=== PATIENT | female | born 1950 | race Caucasian/White ===

== ENCOUNTER → 2016-05-27 | Outpatient (REF) | payer OTHER ==
[~2016-05-27] MED LIST: /DULO30CA PO; /ROPI1TA PO; /ROPI25TA; ASPI325T; ASPI325T PO; CALCCHW12; CALCCHW12 PO; CLAR250T PO; CLAR5CHW; COLA100C2 PO; FISH300C2; HYDR25TA6; IBUP600T; LYRI200C; LYRI200C PO; MULTIVIT; NIAC10TA; OMEP20TA7 PO; PRIL20CA; PRIM50TA4 PO; PROZ20CA; SIMV20TA2 PO; SIMV40TA2; SING10TA31 PO; TRAZ100T; TRAZ100T PO; VICO5TAB; VIT D 2000 PO; VITA250T; VITA500C OR; VITA50TA12; VITAMIN D50000 UNT; veramyst PO
[2016-05-27 18:14] LABS: MEAN CORPUSCULAR HEMOGLOBIN 31.2 pg (27.0-33.0); MEAN CORPUSCULAR HGB CONC 32.5 g/dl (32.0-36.5); MEAN CORPUSCULAR VOLUME 96.1 fl (80.0-96.0); RED CELL DISTRIBUTION WIDTH 12.4 % (11.5-14.5); WHITE BLOOD COUNT 7.3 K/mm3 (4.0-10.0)
== END ==
LOC: M LABDRAWC 16:24
PROVIDERS: ATTEND Internal Medicine Cardiovascular Disease
DX: R53.83 Other fatigue (principal); R00.1 Bradycardia, unspecified

== ENCOUNTER → 2016-12-02 | Outpatient (CLI) | payer OTHER ==
--- NOTE | 2016-12-02 13:31 | REPMRS ---
Patient History The patient states she had a clinical breast exam in 11/2016. Patient is postmenopausal. Family history of ovarian cancer in sister at age 65, colorectal cancer in brother at age 50 or over, and prostate cancer in brother at age 50 or over. Benign stereotactic core biopsy of the right breast, 2007. Benign stereotactic core biopsy of the right breast, 2003. Reductions of both breasts, 1993. Digital Woman Screen Mammo: December 02, 2016 - Exam #: [id number] Bilateral CC and MLO view(s) were taken. Technologist: Steff Weston Technologist Prior study comparison: September 16, 2015, digital woman screen mammo performed at [facility]. September 13, 2014, digital mammo diagnostic bilateral, performed at [facility]. January 31, 2014, right breast digital mammo diagnostic unilateral, performed at [facility]. FINDINGS: There are scattered fibroglandular densities. There is some stable postoperative contour deformity in the upper outer quadrant on the right unchanged. There has been no change in the appearance of the mammogram from the prior studies. There is a mild amount of scattered fibroglandular density which is fairly symmetric. There is no interval development of dominant mass, architectural distortion, or clustered microcalcification suggestive of malignancy. ASSESSMENT: BI-RADS/ACR category 2 mammogram. Benign finding(s). Recommendation Routine screening mammogram in 1 year (for women over age 40). This mammogram was interpreted with the aid of an FDA-approved computer-aided dectection system. Electronically Signed By: Devin Beaulieu MD 12/02/16 [id number]
--- NOTE | 2016-12-03 09:29 | DEXA ---
AP SPINE L1 - L4 1.070 -1.0 0.5 LT FEMUR TOTAL 0.822 -1.5 -0.3 RT FEMUR TOTAL 0.775 -1.8 -0.7 TOTAL BODY TOTAL OTHER DUAL FEMUR FRAX* ASSESSMENT Risk factors: Not performed. 10 year probability of fracture Major osteoporotic fracture % Hip fracture % COMMENTS: There is low bone density of the spine and hips. The density of the spine has decreased 29.7% since the initial exam on 2002. The spine density has decreased 1.4% since the most recent exam on 08/30/2014. The density of the left hip has decreased 41.7% since the initial exam on 2002. The density of the left hip has decreased 9.0% since the most recent exam on 01/2015. The density of the right hip has decreased 41.8% since the initial exam on 11/01. The density of the right hip has decreased 13.2% since the most recent exam on 08/30/2014. FOLLOW-UP: Recommendation for the next bone density exam: 2 years. LEONIE
== END ==
LOC: M WHC 10:29
PROVIDERS: ATTEND Nurse Practitioner Women's Health
DX: Z12.31 Encounter for screening mammogram for malignant neoplasm of breast (principal); Z78.0 Asymptomatic menopausal state
CPT/HCPCS: 77080; G0202

== ENCOUNTER → 2017-03-11 | Outpatient (REF) | payer OTHER ==
[2017-03-11 12:41] LABS: MEAN CORPUSCULAR HEMOGLOBIN 30.8 pg (27.0-33.0); MEAN CORPUSCULAR HGB CONC 32.6 g/dl (32.0-36.5); MEAN CORPUSCULAR VOLUME 94.3 fl (80.0-96.0); PLATELET COUNT, AUTOMATED 215 10^3/uL (150-450); RED CELL DISTRIBUTION WIDTH 12.6 % (11.5-14.5); WHITE BLOOD COUNT 4.8 10^3/uL (4.0-10.0)
[2017-03-11 12:57] LABS: ALBUMIN 3.8 GM/DL (3.2-5.2); ALBUMIN/GLOBULIN RATIO 1.41 (1.00-1.93); ALKALINE PHOSPHATASE 95 U/L (45-117); ALT/SGPT 18 U/L (12-78); ANION GAP 7 MEQ/L (8-16); AST/SGOT 20 U/L (7-37); BILIRUBIN,TOTAL 0.6 MG/DL (0.2-1.0); BLOOD UREA NITROGEN 11 MG/DL (7-18); CALCIUM LEVEL 8.8 MG/DL (8.8-10.2); CARBON DIOXIDE LEVEL 30 MEQ/L (21-32); CHLORIDE LEVEL 105 MEQ/L (98-107); CHOLESTEROL LEVEL 170 MG/DL (<200); CREATININE FOR GFR 0.62 MG/DL (0.55-1.02); GLOMERULAR FILTRATION RATE > 60.0 (>45); GLUCOSE, FASTING 87 MG/DL (80-110); MAGNESIUM LEVEL 1.8 MG/DL (1.8-2.4); POTASSIUM SERUM 4.3 MEQ/L (3.5-5.1); SODIUM LEVEL 142 MEQ/L (136-145); TOTAL PROTEIN 6.5 GM/DL (6.4-8.2); TRIGLYCERIDES LEVEL 58 MG/DL (<150)
[2017-03-11 13:01] LABS: VITAMIN B12 LEVEL 579 PG/ML
[2017-03-11 13:02] LABS: FOLATE 10.1 NG/ML
== END ==
LOC: M SFHCPLAZ 08:58 → M LABDRAWC 09:10
PROVIDERS: ATTEND Internal Medicine
DX: E78.5 Hyperlipidemia, unspecified (principal); Z86.39 Personal history of other endocrine, nutritional and metabolic disease; I25.10 Atherosclerotic heart disease of native coronary artery without angina pectoris; E55.9 Vitamin D deficiency, unspecified; Z98.84 Bariatric surgery status

== ENCOUNTER → 2017-03-23 | Outpatient (CLI) | payer OTHER | LOC: M RAD 13:01 | DX: Z12.2 Encounter for screening for malignant neoplasm of respiratory organs (principal); F17.200 Nicotine dependence, unspecified, uncomplicated | CPT/HCPCS: G0297 ==

== ENCOUNTER → 2017-06-21 | Outpatient (REF) | payer OTHER ==
[2017-06-21 13:45] LABS: ALBUMIN 4.2 GM/DL (3.2-5.2); ALKALINE PHOSPHATASE 103 U/L (45-117); ALT/SGPT 19 U/L (12-78); ANION GAP 4 MEQ/L (8-16); AST/SGOT 20 U/L (7-37); BILIRUBIN,TOTAL 0.4 MG/DL (0.2-1.0); BLOOD UREA NITROGEN 14 MG/DL (7-18); CALCIUM LEVEL 8.7 MG/DL (8.8-10.2); CARBON DIOXIDE LEVEL 31 MEQ/L (21-32); CHLORIDE LEVEL 107 MEQ/L (98-107); CREATININE FOR GFR 0.59 MG/DL (0.55-1.30); FREE T3 2.7 PG/ML (2.2-4.0); FREE T4 1.03 NG/DL (0.76-1.46); GLOMERULAR FILTRATION RATE > 60.0 (>45); GLUCOSE, FASTING 76 MG/DL (70-100); POTASSIUM SERUM 4.5 MEQ/L (3.5-5.1); SODIUM LEVEL 142 MEQ/L (136-145)
== END ==
LOC: M SFHCPLAZ 11:32
DX: R63.4 Abnormal weight loss (principal)
CPT/HCPCS: 84443

== ENCOUNTER 2017-08-04 08:52 | Day surgery (SDC) | payer MEDICARE, OTHER ==
[2017-08-04] MEDS: NS 1,000 ML IV (09:00)
[2017-08-04] MEDS ORDERED: PROPOFOL 200 MG/20 ML VIAL As Ordered (10:22)
[2017-08-04] MEDS ORDERED: LIDOCAINE 2% INJ 100 MG/5 ML SDV (FOR ANES.) As Ordered (10:22)
== END 2017-08-04 11:17 | disposition home or self-care (01) ==
LOC: M OPP 08:52
DX: Z12.11 Encounter for screening for malignant neoplasm of colon (principal); Z86.010 Personal history of colon polyps; K64.0 First degree hemorrhoids; R63.4 Abnormal weight loss; Z98.84 Bariatric surgery status; Z98.0 Intestinal bypass and anastomosis status; I25.10 Atherosclerotic heart disease of native coronary artery without angina pectoris; Z95.1 Presence of aortocoronary bypass graft; E78.5 Hyperlipidemia, unspecified; E03.9 Hypothyroidism, unspecified; M79.7 Fibromyalgia; F32.9 Major depressive disorder, single episode, unspecified; F41.9 Anxiety disorder, unspecified; G47.30 Sleep apnea, unspecified; E55.9 Vitamin D deficiency, unspecified; F17.210 Nicotine dependence, cigarettes, uncomplicated; Z79.82 Long term (current) use of aspirin; Z79.899 Other long term (current) drug therapy
CPT/HCPCS: G0105

== ENCOUNTER → 2017-08-31 | Outpatient (REF) | payer MEDICARE, OTHER ==
[2017-08-31 16:52] LABS: HEMATOCRIT 41.8 % (36.0-47.0); HEMOGLOBIN 13.7 g/dl (12.0-15.5); MEAN CORPUSCULAR HEMOGLOBIN 30.7 pg (27.0-33.0); MEAN CORPUSCULAR HGB CONC 32.8 g/dl (32.0-36.5); MEAN CORPUSCULAR VOLUME 93.7 fl (80.0-96.0); PLATELET COUNT, AUTOMATED 278 10^3/uL (150-450); RED BLOOD COUNT 4.46 10^6/uL (4.00-5.40); RED CELL DISTRIBUTION WIDTH 12.9 % (11.5-14.5); WHITE BLOOD COUNT 6.2 10^3/uL (4.0-10.0)
[2017-08-31 17:00] LABS: ALBUMIN 3.9 GM/DL (3.2-5.2); ALBUMIN/GLOBULIN RATIO 1.34 (1.00-1.93); ALKALINE PHOSPHATASE 102 U/L (45-117); ALT/SGPT 27 U/L (12-78); ANION GAP 7 MEQ/L (8-16); AST/SGOT 21 U/L (7-37); BILIRUBIN,TOTAL 0.5 MG/DL (0.2-1.0); BLOOD UREA NITROGEN 9 MG/DL (7-18); CALCIUM LEVEL 8.8 MG/DL (8.8-10.2); CARBON DIOXIDE LEVEL 31 MEQ/L (21-32); CHLORIDE LEVEL 104 MEQ/L (98-107); CREATININE FOR GFR 0.71 MG/DL (0.55-1.30); GLOMERULAR FILTRATION RATE > 60.0 (>45); GLUCOSE, FASTING 87 MG/DL (70-100); POTASSIUM SERUM 4.5 MEQ/L (3.5-5.1); SODIUM LEVEL 142 MEQ/L (136-145); TOTAL PROTEIN 6.8 GM/DL (6.4-8.2)
== END ==
LOC: M SFHCCLAY 10:38
DX: Z98.84 Bariatric surgery status (principal)
CPT/HCPCS: 80053

== ENCOUNTER → 2017-12-03 | Outpatient (CLI) | payer MEDICARE, OTHER | LOC: M WHC 09:00 | DX: Z12.31 Encounter for screening mammogram for malignant neoplasm of breast (principal); Z78.0 Asymptomatic menopausal state; Z80.0 Family history of malignant neoplasm of digestive organs; Z80.42 Family history of malignant neoplasm of prostate; Z80.41 Family history of malignant neoplasm of ovary; Z92.89 Personal history of other medical treatment | CPT/HCPCS: 77067 ==

== ENCOUNTER → 2017-12-07 | Outpatient (REF) | payer MEDICARE, OTHER ==
[2017-12-08 12:37] LABS: ALBUMIN/GLOBULIN RATIO 1.43 (1.00-1.93); ALKALINE PHOSPHATASE 98 U/L (45-117); ALT/SGPT 25 U/L (12-78); ANION GAP 6 MEQ/L (8-16); AST/SGOT 28 U/L (7-37); BILIRUBIN,TOTAL 0.4 MG/DL (0.2-1.0); BLOOD UREA NITROGEN 13 MG/DL (7-18); CALCIUM LEVEL 8.7 MG/DL (8.8-10.2); CARBON DIOXIDE LEVEL 30 MEQ/L (21-32); CHLORIDE LEVEL 106 MEQ/L (98-107); CHOLESTEROL LEVEL 181 MG/DL (<200); CREATININE FOR GFR 0.75 MG/DL (0.55-1.30); GLOMERULAR FILTRATION RATE > 60.0 (>45); GLUCOSE, FASTING 82 MG/DL (70-100); HDL CHOLESTEROL 55 MG/DL (>40); LDL CHOLESTEROL 109 MG/DL (<100); NON-HDL-C 126 MG/DL; POTASSIUM SERUM 4.4 MEQ/L (3.5-5.1); SODIUM LEVEL 142 MEQ/L (136-145); TOTAL PROTEIN 6.8 GM/DL (6.4-8.2); TRIGLYCERIDES LEVEL 83 MG/DL (<150)
[2017-12-08 17:24] LABS: ESTIMATED AVERAGE GLUCOSE 108 MG/DL (60-110); HEMOGLOBIN A1c 5.4 %
== END ==
LOC: M SFHCCLAY 15:56
DX: K91.2 Postsurgical malabsorption, not elsewhere classified (principal); E78.5 Hyperlipidemia, unspecified
CPT/HCPCS: 80053

== ENCOUNTER → 2018-03-02 | Outpatient (CLI) | payer MEDICARE, OTHER | LOC: M RAD 13:38 | DX: Z12.2 Encounter for screening for malignant neoplasm of respiratory organs (principal); R91.1 Solitary pulmonary nodule; F17.210 Nicotine dependence, cigarettes, uncomplicated | CPT/HCPCS: G0297 ==

== ENCOUNTER → 2018-06-13 | Outpatient (REF) | payer MEDICARE, OTHER ==
[~2018-06-13] MED LIST changes: +ACET1TAB16 PO; +ARTI99.0 OU; +ASPI1TAB PO; +BENA25CA4 PO; +CALC-190 PO; +CALC600T57 PO; +GABA-843 PO; +LIPI20TA PO; +OMEP40CA2 PO; +PRAV20TA2 PO; +REGL5TAB2 PO; +SUCR1TAB56 PO; +VITA100T20 PO; +VITAD1000T PO; +ZOFR4TAB14 PO
== END ==
LOC: M SFHCPLAZ 11:51
PROVIDERS: ATTEND Internal Medicine
DX: Z86.39 Personal history of other endocrine, nutritional and metabolic disease (principal); E78.5 Hyperlipidemia, unspecified; G25.81 Restless legs syndrome; Z53.8 Procedure and treatment not carried out for other reasons

== ENCOUNTER → 2018-07-25 | Outpatient (REF) | payer MEDICARE, OTHER ==
[~2018-07-25] MED LIST changes: -/DULO30CA PO; -/ROPI1TA PO; -/ROPI25TA; -ASPI1TAB PO; +ASPI81TA26 PO; +CYMB1CAP5 PO; +REQU1TAB14; +REQU1TAB16 PO; -VITA100T20 PO; +VITA100T51 PO
[2018-07-25 18:28] LABS: HEMATOCRIT 41.5 % (36.0-47.0); HEMOGLOBIN 13.1 g/dl (12.0-15.5); MEAN CORPUSCULAR HGB CONC 31.6 g/dl (32.0-36.5); PLATELET COUNT, AUTOMATED 213 10^3/uL (150-450); RED BLOOD COUNT 4.37 10^6/uL (4.00-5.40); WHITE BLOOD COUNT 4.7 10^3/uL (4.0-10.0)
[2018-07-25 19:20] LABS: ALBUMIN 3.9 GM/DL (3.2-5.2); ALT/SGPT 24 U/L (12-78); BILIRUBIN,TOTAL 0.5 MG/DL (0.2-1.0); BLOOD UREA NITROGEN 14 MG/DL (7-18); CALCIUM LEVEL 8.5 MG/DL (8.8-10.2); CARBON DIOXIDE LEVEL 31 MEQ/L (21-32); CHLORIDE LEVEL 107 MEQ/L (98-107); CHOLESTEROL LEVEL 180 MG/DL (<200); CHOLESTEROL RISK RATIO 3.272 (<5); CREATININE FOR GFR 0.74 MG/DL (0.55-1.30); GLOMERULAR FILTRATION RATE > 60.0 (>45); GLUCOSE, FASTING 94 MG/DL (70-100); HDL CHOLESTEROL 55 MG/DL (>40); LDL CHOLESTEROL 110 MG/DL (<100); NON-HDL-C 125 MG/DL; SODIUM LEVEL 142 MEQ/L (136-145); TOTAL PROTEIN 6.4 GM/DL (6.4-8.2); TRIGLYCERIDES LEVEL 75 MG/DL (<150)
== END ==
LOC: M SFHCPLAZ 09:26
PROVIDERS: ATTEND Internal Medicine
DX: Z86.39 Personal history of other endocrine, nutritional and metabolic disease (principal); E78.5 Hyperlipidemia, unspecified; G25.81 Restless legs syndrome

== ENCOUNTER → 2018-08-22 | Outpatient (CLI) | payer MEDICARE, OTHER ==
--- NOTE | 2018-08-22 13:13 | REP ---
REASON: Followup lung nodule. COMPARISON: 03/02/2018 and 04/02/2017. The exam is limited by lack of intravenous contrast. There is no mediastinal or hilar adenopathy. There are no pleural or pericardial effusions. The imaged upper abdomen and imaged osseous structures are within normal limits. Postoperative changes are seen in the left upper quadrant. Evaluation of the lung jesus shows the 4 mm sized nodule in the right lung apex to have resolved. There are no new abnormal nodules, masses, or opacities. The examination is otherwise unchanged. Early emphysematous changes status quo. IMPRESSION: 1. No abnormal lung nodules. 2. Stable chronic changes. 3. According to the revised Fleischner's Society criteria yearly CT screening is recommended provided the patient's risk factors remain high. 4. There is evidence of early emphysematous change. Electronically Signed by Bronson Cornejo DO 08/22/2018 01:58 P
== END ==
LOC: M RAD 12:13
PROVIDERS: ATTEND Internal Medicine
DX: J43.9 Emphysema, unspecified (principal)

== ENCOUNTER → 2019-01-30 | Outpatient (REF) | payer MEDICARE, OTHER ==
[~2019-01-30] MED LIST changes: -ARTI99.0 OU; +ARTIDRO2 OU; +CHOL100029 PO; -OMEP40CA2 PO; +OMEP40CA97 PO; -VITAD1000T PO
[2019-01-30 12:27] LABS: HEMATOCRIT 44.6 % (36.0-47.0); HEMOGLOBIN 14.1 g/dl (12.0-15.5); MEAN CORPUSCULAR HEMOGLOBIN 30.3 pg (27.0-33.0); MEAN CORPUSCULAR HGB CONC 31.6 g/dl (32.0-36.5); MEAN CORPUSCULAR VOLUME 95.9 fl (80.0-96.0); PLATELET COUNT, AUTOMATED 213 10^3/uL (150-450); RED BLOOD COUNT 4.65 10^6/uL (4.00-5.40); WHITE BLOOD COUNT 4.9 10^3/uL (4.0-10.0)
[2019-01-30 13:17] LABS: ALBUMIN 3.7 GM/DL (3.2-5.2); ALT/SGPT 21 U/L (12-78); BILIRUBIN,TOTAL 0.5 MG/DL (0.2-1.0); BLOOD UREA NITROGEN 13 MG/DL (7-18); CALCIUM LEVEL 8.7 MG/DL (8.8-10.2); CARBON DIOXIDE LEVEL 30 MEQ/L (21-32); CHLORIDE LEVEL 104 MEQ/L (98-107); CHOLESTEROL LEVEL 166 MG/DL (<200); CHOLESTEROL RISK RATIO 3.192 (<5); CREATININE FOR GFR 0.68 MG/DL (0.55-1.30); FOLATE 13.5 NG/ML; GLOMERULAR FILTRATION RATE > 60.0 (>45); GLUCOSE, FASTING 80 MG/DL (70-100); HDL CHOLESTEROL 52 MG/DL (>40); LDL CHOLESTEROL 98 MG/DL (<100); NON-HDL-C 114 MG/DL; POTASSIUM SERUM 4.6 MEQ/L (3.5-5.1); SODIUM LEVEL 141 MEQ/L (136-145); TOTAL PROTEIN 6.1 GM/DL (6.4-8.2); TRIGLYCERIDES LEVEL 82 MG/DL (<150); VITAMIN B12 LEVEL 480 PG/ML
== END ==
LOC: M SFHCPLAZ 10:51
DX: E78.5 Hyperlipidemia, unspecified (principal); M85.851 Other specified disorders of bone density and structure, right thigh; F32.9 Major depressive disorder, single episode, unspecified; Z86.39 Personal history of other endocrine, nutritional and metabolic disease; Z98.84 Bariatric surgery status

== ENCOUNTER → 2019-02-15 | Outpatient (REF) | payer MEDICARE, OTHER ==
[2019-02-15 15:49] LABS: APPEARANCE, URINE CLOUDY (CLEAR); BACTERIA, URINE AUTO 3+ (NEGATIVE); BILIRUBIN, URINE AUTO NEGATIVE (NEGATIVE); BLOOD, URINE BLOOD 2+ (NEGATIVE); COLOR, URINE YELLOW (YELLOW); GLUCOSE, URINE (UA) AUTO NEGATIVE (NEGATIVE); KETONE, URINE AUTO NEGATIVE (NEGATIVE); LEUKOCYTE ESTERASE, URINE AUTO 3+ (NEGATIVE); NITRITE, URINE AUTO POSITIVE (NEGATIVE); PROTEIN, URINE AUTO NEGATIVE (NEGATIVE); RBC, URINE AUTO 7 /HPF (0-3); SPECIFIC GRAVITY URINE AUTO 1.015 (1.002-1.035); SQUAMOUS EPITHELIAL CELL UR AU 1 /HPF (0-6); UROBILINOGEN, URINE AUTO 0.2 mg/dL (0.0-2.0); WBC, URINE AUTO TNTC /HPF (0-3)
== END ==
LOC: M SFHCPLAZ 15:26
PROVIDERS: ATTEND Internal Medicine
DX: N39.0 Urinary tract infection, site not specified (principal)

== ENCOUNTER → 2019-02-20 | Outpatient (CLI) | payer MEDICARE, OTHER ==
--- NOTE | 2019-02-20 14:29 | REP ---
BILATERAL SCREENING MAMMOGRAM WITH 3D TOMOSYNTHESIS: No family history of breast cancer. Tyrer-Cuzick lifetime risk of breast cancer 5.4%. MLO and CC views of both breasts were performed with 3D tomosynthesis. There is mild to moderate scattered fibroglandular tissue. There is no change on the right. However, on the left, there is a spiculated nodule medially and posteriorly measuring approximately 1.1 cm in diameter. Anteriorly, in the retroareolar region of the left breast only on the CC view, there is an oval 1 cm nodular density. This could be artifactual. No other mass or clustered microcalcifications are seen bilaterally. IMPRESSION: BIRADS 0: BI-RADS/ACR category 0 mammogram, Incomplete: Need additional imaging evaluation and/or prior mammograms for comparison. ACR 0 incomplete. There now appears to be a spiculated nodule in the medial aspect of the left breast 1.1 cm in diameter. 1 cm oval nodular density is seen in the retroareolar region of the left breast slightly laterally, only seen on the CC views. Recommend spot compression views and ultrasound to further evaluate. This mammogram was interpreted with the aid of an FDA-approved computer-aided detection system. The patient states that she or he has not had a clinical breast exam in over a year. Patient letter being requested is M0.
--- NOTE | 2019-02-23 10:53 | DEXA ---
AP SPINE L1 - L4 1.019 -1.4 0.2 LT FEMUR TOTAL 0.793 -1.7 -0.4 LT NECK 0.824 -1.5 0.0 RT FEMUR TOTAL 0.731 -2.2 -0.9 RT NECK 0.802 -1.7 -0.2 TOTAL BODY TOTAL OTHER COMMENTS: There is low bone density of the spine and hips. The decreased density of the spine does represent a significant change. The decreased density of the left hip does represent a significant change. The decreased density of the right hip does represent a significant change. The density of the spine has decreased 33.0% since the initial exam on 11/06/2002. The spine density has decreased 4.8% since the most recent exam on 12/02/2016. The density of the left hip has decreased 43.7% since the initial exam on 11/06/2002. The density of the left hip has decreased 3.5% since the most recent exam on 12/02/2016. The density of the right hip has decreased 45.1% since the initial exam on 11/06/2002. The density of the right hip has decreased 5.7% since the most recent exam on 12/02/2016. FOLLOW-UP: Recommendation for the next bone density exam: 2 years. LEONIE
== END ==
LOC: M WHC 12:08
PROVIDERS: ATTEND Internal Medicine
DX: Z12.31 Encounter for screening mammogram for malignant neoplasm of breast (principal); N63.20 Unspecified lump in the left breast, unspecified quadrant; M85.851 Other specified disorders of bone density and structure, right thigh

== ENCOUNTER → 2019-03-13 | Outpatient (CLI) | payer MEDICARE, OTHER ==
--- NOTE | 2019-03-13 13:57 | REP ---
DIAGNOSTIC MAMMOGRAM LEFT BREAST WITH LEFT BREAST ULTRASOUND: Multiple spot compression views of the left breast are performed and correlated with the recent mammogram of 02/20/2019. There is confirmed a spiculated subcentimeter nodule in the upper inner left breast. It measures about 9 mm in maximum diameter. Real-time sonographic evaluation of the inner left breast demonstrates an irregular hypoechoic solid nodule with distal shadowing measuring 7 mm in diameter. It is taller than wide. It appears suspicious. IMPRESSION: ACR 4 suspicious. Small spiculated nodule inner left breast is seen both mammographically and sonographically. Recommend ultrasound-guided biopsy of the nodule, with clip placement and post procedure mammogram. Patient letter being requested is M4. Electronically Signed by Abraham Cox MD 03/13/2019 02:52 P
== END ==
LOC: M RAD 11:49
PROVIDERS: ATTEND Internal Medicine
DX: Z12.31 Encounter for screening mammogram for malignant neoplasm of breast (principal); N63.20 Unspecified lump in the left breast, unspecified quadrant; R92.8 Other abnormal and inconclusive findings on diagnostic imaging of breast

== ENCOUNTER → 2019-03-24 | Outpatient (CLI) | payer MEDICARE, OTHER ==
--- NOTE | 2019-03-24 14:22 | REP ---
Digital diagnostic unilateral right breast mammography with CAD, 3-D tomography. History: Contour deformity with unclear surgical history. Status post prior reduction surgery both breasts 1993. Status post benign stereotactic core biopsy right breast 2006. The patient relates a prior median sternotomy. Comparison is made with prior mammography from February 20, 2019, December 03, 2017, and more remote prior right breast mammography from September 16, 2015. Mammographic findings: There is a slight contour deformity seen in the right lateral breast with dermal thickening. This is less pronounced than on the 2016 prior study and is felt to be postsurgical and benign. No change from most recent prior mammography March 13, 2019. No suspicious mass or microcalcification is seen. There is a normal stable lymph node in the upper outer quadrant. Impression: BIRADS 2: BI-RADS/ACR category 2 mammogram. Benign Findings. This mammogram was interpreted with the aid of an FDA-approved computer-aided detection system. The patient states she had a clinical breast exam in February 2019. The patient letter being requested is m2. Electronically Signed by Jason Beaulieu MD 03/24/2019 03:54 P
== END ==
LOC: M RAD 12:30
PROVIDERS: ATTEND Surgery
DX: N63.20 Unspecified lump in the left breast, unspecified quadrant (principal); Z98.86 Personal history of breast implant removal
CPT/HCPCS: 77065; G0279

== ENCOUNTER → 2019-03-30 | Outpatient (CLI) | payer MEDICARE, OTHER ==
[~2019-03-30] MED LIST changes: +LIDOCAINE 1% MDV 20ML VIAL As Ordered ONE; +SODIUM BICARBONATE 8.4% INJ 50MEQ 50 ML VIAL As Ordered ONE
[2019-03-30 12:40] VITALS: BP 148/74
--- NOTE | 2019-03-30 13:40 | REP ---
DIGITAL DIAGNOSTIC UNILATERAL LEFT BREAST MAMMOGRAPHY: Five views with CAD. HISTORY: Marker clip placement views. Status post ultrasound-guided needle biopsy left breast. Comparison left breast mammography March 13 2019 and February 20, 2019. FINDINGS: Initial CC, true ML, and MLO views were obtained. These did not show the marker clip which apparently did not deploy. There is a post biopsy air bubble at the site of the spiculated nodule. The craniocaudal and true mediolateral views were repeated after a clip was replaced sonographically by Dr. Newton. These demonstrate the marker clip in excellent position within the remains of the spiculated density. There is no evidence of hemorrhage. IMPRESSION: Marker clip seen in good position on final films. Electronically Signed by Jason Beaulieu MD 03/30/2019 06:28 P
--- NOTE | 2019-03-30 16:57 | ROOPDOC ---
[facility] Report Of Operation Report of Operation DATE OF PROCEDURE: 03/30/19 PREPROCEDURE DIAGNOSES: Left breast mass POSTPROCEDURE DIAGNOSES: Left breast mass PROCEDURE: Ultrasound guided left breast mass biopsy and clip placement SURGEON: Pricilla Newton D.O. HUMAN RESOURCE ASSISTANT: ANESTHESIA: Local anesthetic 7 cc ESTIMATED BLOOD LOSS: Approximately 1 mL. COMPLICATIONS: failure of first Hydromark clip deployment and need for placement of another Hydromark clip and additional mammogram DESCRIPTION OF PROCEDURE: Lidocaine 1% LOT [id number] Expiration 04/2020 Sodium Bicarbonate 8.4% LOT [id number] Expiration 05/2020 Hydromark clip LOT [id number] Expiration 12/2021 Bx device: BARD [id number] x10 cm Informed consent was obtained in the preop area. The most common risk and possible complications including bleeding, hematoma, bruising, infection, injury to surrounding structures were explained to the patient and she expressed understanding. Patient was taken to the procedure room and placed on the bed in the supine position with the left upper extremity placed above the head. Appropriate time out was done stating patients name, date of , and the procedure to be performed. The left breast was prepped and draped in the usual fashion. The ultrasound was used to confirm the location of the lesion in the left breast at 9:00-10:00 2.5 centimeters from the nipple. The protrusion of the soft tissues between the ribs in the same area with every breath was again noted and care was taken to avoid this area during biopsy. Plain Lidocaine 1% and 8.4% sodium bicarbonate 10:1 mix was used to numb the skin, the biopsy site and tissues along the anticipated biopsy tract. Small skin incision was made with blade number 11. BARD Marquee 14G cannula with introducer ([id number]) was inserted through the incision and advanced under the ultrasound guidance to position immediately adjacent to the lesion. Next, the introducer was removed and BARD Marquee 14G biopsy device was places in the cannula. Pre-biopsy imaging, and post-biopsy imaging were captured. Five good core biopsies were taken at various levels of the lesion. Next, the biopsy device was withdrawn and a clip introducer was inserted into the biopsy site via the cannula. The Hydromark clip was deployed under direct vision. It was hard to see deployed clip and the air in the biopsied lesion obstructed the view. Manual pressure over the biopsy cavity and tract was held after the clip introducer and the cannula were withdrawn. No bleeding was noted upon removal of the pressure. Post-biopsy mammogram of the left breast was obtained. We were not able to see clip at the site of biopsy. Patient was taken to the procedure room again and positioned on the bed. Left breast was again cleaned in the usual fashion. Ultrasound was used to localize previously biopsied lesion. Another Hydromark clip was introducer was inserted through the same skin incision and guided to the target lesion under ultrasound vision. Clip was deployed and was observed on the image. The post clip deployment imaging was captured. Pressure was again held at the site of biopsy. No bleeding was noted afterwards. Another post-biopsy mammogram of the left breast was obtained and showed clip in expected position. Postprocedural dressing was placed. Patient tolerated procedure well and was taken to the recovery unit in stable condition. Discharge instructions were discussed with the patient and she expressed understanding. PRIICLLA Unger DO Mar 30, 2019 16:57
== END ==
LOC: M IRPRO 10:39
PROVIDERS: ATTEND Surgery
DX: D05.12 Intraductal carcinoma in situ of left breast (principal)

== ENCOUNTER → 2019-04-07 | Outpatient (CLI) | payer MEDICARE, OTHER ==
[~2019-04-07] MED LIST changes: -LIDOCAINE 1% MDV 20ML VIAL As Ordered ONE; -SODIUM BICARBONATE 8.4% INJ 50MEQ 50 ML VIAL As Ordered ONE
== END ==
LOC: M PLALAB 09:39
PROVIDERS: ATTEND Surgery
DX: Z13.9 Encounter for screening, unspecified (principal)

== ENCOUNTER → 2019-05-15 | Outpatient (CLI) | payer MEDICARE, OTHER ==
[~2019-05-15] MED LIST changes: -ARTIDRO2 OU; +COLA100C5 PO; +DULO60CA35 PO; +MONT10TA4 PO; +POLYOPD OU; +ROPI1TAB3 PO; +TRAZ-189 PO; +ULTR50TA8 PO
--- NOTE | 2019-05-15 17:26 | REP ---
CT of the chest without IV contrast for acquire deformity of chest and rib: Comparison is the chest CT dated 08/22/2018. There is slight deformity of the right third rib anteriorly from an old healed fracture. This is unchanged. There is a slight inward deviation at the anterior end of the right sixth rib. This is unchanged. This is identified to best advantage on the coronal images and is barely perceptible on the axial images. No other rib deformities are identified. The sternoclavicular joints are unremarkable. There is an hemangioma in the T10 vertebral body. This is unchanged. There are no lung masses or nodules. There are no infiltrates or effusions. No mediastinal adenopathy or masses are identified. No axillary adenopathy. I suspect bariatric surgery in the visualized upper abdomen. Impression: Minimal chest wall deformities on the right as described. Hemangioma in the T10 vertebral body. Electronically Signed by Abraham Correa MD 05/15/2019 05:18 P
== END ==
LOC: M RAD 16:03
PROVIDERS: ATTEND Thoracic Surgery (Cardiothoracic Vascular Surgery)
DX: D18.09 Hemangioma of other sites (principal); M95.4 Acquired deformity of chest and rib

== ENCOUNTER → 2019-05-16 | Outpatient (REF) | payer MEDICARE, OTHER ==
[~2019-05-16] MED LIST changes: -ULTR50TA8 PO
[2019-05-16 18:48] LABS: HEMATOCRIT 42.6 % (36.0-47.0); HEMOGLOBIN 13.8 g/dl (12.0-15.5); MEAN CORPUSCULAR HEMOGLOBIN 30.8 pg (27.0-33.0); MEAN CORPUSCULAR HGB CONC 32.4 g/dl (32.0-36.5); MEAN CORPUSCULAR VOLUME 95.1 fl (80.0-96.0); PLATELET COUNT, AUTOMATED 230 10^3/uL (150-450); RED BLOOD COUNT 4.48 10^6/uL (4.00-5.40); WHITE BLOOD COUNT 6.3 10^3/uL (4.0-10.0)
[2019-05-16 19:11] LABS: ALBUMIN 3.9 GM/DL (3.2-5.2); ALT/SGPT 23 U/L (12-78); BILIRUBIN,TOTAL 0.3 MG/DL (0.2-1.0); BLOOD UREA NITROGEN 14 MG/DL (7-18); CALCIUM LEVEL 9.1 MG/DL (8.8-10.2); CARBON DIOXIDE LEVEL 29 MEQ/L (21-32); CHLORIDE LEVEL 108 MEQ/L (98-107); CREATININE FOR GFR 0.71 MG/DL (0.55-1.30); GLOMERULAR FILTRATION RATE > 60.0 (>45); GLUCOSE, FASTING 73 MG/DL (70-100); POTASSIUM SERUM 4.5 MEQ/L (3.5-5.1); SODIUM LEVEL 142 MEQ/L (136-145); TOTAL PROTEIN 6.4 GM/DL (6.4-8.2)
== END ==
LOC: M SFHCPLAZ 14:55
PROVIDERS: ATTEND Family Medicine
DX: Z01.818 Encounter for other preprocedural examination (principal); C50.212 Malignant neoplasm of upper-inner quadrant of left female breast

== ENCOUNTER 2019-05-18 09:29 | Observation (INO) | payer MEDICARE, OTHER ==
[~2019-05-18] VITALS: Ht 165.1 cm; Wt 63.6 kg
[~2019-05-18 09:29] MED LIST changes: +HEPARIN SOD (PORCINE) 5000 UNITS/ML VIAL (J1644 PER 1000UNITS) SQ ONE; +LIDOCAINE 1% MDV 20ML VIAL SQ PRN; +LR 1,000 ML IV ONE; +ceFAZolin SOD 2 GM in IV 1 EA IV ONE
[2019-05-18] MEDS ORDERED: LIDOCAINE 5% (LIDODERM) PATCH As Ordered ONE (10:00)
[2019-05-18] MEDS ORDERED: LIDOCAINE 5% (LIDODERM) PATCH TD ONE (10:30)
[2019-05-18] MEDS ORDERED: LIDOCAINE 2% INJ 100 MG/5 ML SDV (FOR ANES.) As Ordered ONE (11:27)
[2019-05-18] MEDS ORDERED: MIDAZOLAM INJ 2 MG/2 ML VIAL (J2250) As Ordered ONE (11:27)
[2019-05-18] MEDS ORDERED: fentaNYL 100 MCG/2 ML INJECTION (J3010) As Ordered ONE ×2 (11:27→15:51)
[2019-05-18] MEDS ORDERED: dexameTHASONE 4 MG/ML 1ML VIAL (J1100) As Ordered ONE (11:27)
[2019-05-18] MEDS ORDERED: propofoL 200 MG/20 ML VIAL As Ordered ONE (11:27)
[2019-05-18] MEDS ORDERED: BUPIVACAINE HCL 0.25% 30 ML VIAL As Ordered ONE (14:33)
[2019-05-18] MEDS ORDERED: METHYLENE BLUE 0.5% (5MG/ML) 10 ML AMP (PROVAYBLUE)(Q9968 PER 1MG) As Ordered ONE (14:33)
[2019-05-18] MEDS ORDERED: LIDOCAINE 1% SDV INJ 30 ML VIAL As Ordered ONE (14:33)
[2019-05-18] MEDS ORDERED: ROCURONIUM BROMIDE 50 MG/5 ML VIAL As Ordered ONE (14:42)
[2019-05-18] MEDS ORDERED: ePHEDrine SULFATE 25 MG/5 ML(5MG/ML) SYRINGE As Ordered ONE (15:23)
[2019-05-18] MEDS ORDERED: ONDANSETRON 4MG/2ML VIAL (J2405) As Ordered ONE (16:52)
[2019-05-18] MEDS ORDERED: SUGAMMADEX SODIUM 500 MG/5 ML VIAL (BRIDION) As Ordered ONE (17:08)
[2019-05-18] MEDS ORDERED: ACETAMINOPHEN 1000MG 100ML IV BTL (OFIRMEV) (J0131 PER 10MG) As Ordered ONE (17:26)
[2019-05-18] MEDS ORDERED: KETOROLAC 60 MG/2 ML VIAL (J1885) As Ordered ONE (17:29)
[2019-05-18] MEDS ORDERED: HYDROmorphone HCL 2 MG/ML 1ML VIAL (J1170) As Ordered ONE (17:31)
[2019-05-18] MEDS ORDERED: ULTR50TA8 PO (18:19)
[2019-05-18] MEDS ORDERED: ONDANSETRON 4MG/2ML VIAL (J2405) IV PRN ×2 (18:45→20:15)
[2019-05-18] MEDS ORDERED: METOCLOPRAMIDE INJ 10MG/2ML VIAL (J2765) IV PRN (18:45)
[2019-05-18] MEDS ORDERED: fentaNYL 100 MCG/2 ML INJECTION (J3010) IV PRN (18:45)
[2019-05-18] MEDS ORDERED: LR 1,000 ML IV SCH (18:45)
[2019-05-18] MEDS ORDERED: PERCOCET 5MG/325MG TAB PO PRN ×2 (18:45→20:15)
[2019-05-18] MEDS ORDERED: MORPHINE 2 MG/ML 1ML VIAL (J2270) IV PRN (20:15)
[2019-05-18] MEDS ORDERED: ACETAMINOPHEN 500 MG TAB PO PRN (20:15)
[2019-05-18 20:30] VITALS: BP 135/72
[2019-05-18 21:00] VITALS: BP 127/65
[2019-05-18 21:30] VITALS: BP 128/64
[2019-05-18 22:30] VITALS: BP 122/74
[2019-05-18 23:59] VITALS: BP 128/71
[2019-05-19 00:30] VITALS: BP 131/68
[2019-05-19 01:30] VITALS: BP 124/64
[2019-05-19 06:00] VITALS: BP 101/54
--- NOTE | 2019-05-19 08:04 | IPNPDOC ---
Subjective General Date Seen: May 19, 2019 Subject Chief Complaint/History The patient is a 68-year-old female with recent diagnosis of left breast cancer , now s/p Left lumpectomy and left sentinel lymph node biopsy POD1 who was admitted for obs postop due to O2 Desaturations W/Cardiac Hx. patient did well over night. She was weaned off NC and now saturates well on room air. She is more awake now. Minimal pain. No issues with eating. Current Medications Current Medications Current Medications Medications (Trade) Dose Ordered Sig/Jeny Route PRN Reason Start Time Stop Time Status Last Admin Dose Admin Acetaminophen (Tylenol Tab) 500 mg Q4HP PRN PO PAIN 1-4 05/18/19 20:15 Fentanyl Citrate (Sublimaze) 25 mcg Q5MP PRN IV PAIN LEVEL 5-10 05/18/19 18:45 05/18/19 19:45 DC Lactated Ringer's 1,000 ml @ 100 mls/hr Q10H IV 05/18/19 18:45 05/18/19 19:45 DC Lidocaine HCl (LIDOCAINE 1% MDV 20ml) 0.1 ml ONCE PRN SQ DISCOMFORT BEFORE IV START 05/18/19 06:00 05/18/19 18:29 DC Metoclopramide HCl (REGLAN INJection) 10 mg Q6HP PRN IV NAUSEA OR VOMITING 05/18/19 18:45 05/18/19 19:45 DC Morphine Sulfate (Morphine Sulfate Inj) 2 mg Q2HP PRN IV BREAKTHROUGH PAIN 05/18/19 20:15 Non-Formulary Medication ( See Comment Field Below ) REMOVE LIDODERM PATCH DAILY@2200 XX 05/18/19 22:00 05/18/19 22:01 DC Ondansetron HCl (ZOFRAN INJection) 4 mg Q4HP PRN IV NAUSEA OR VOMITING 05/18/19 18:45 05/18/19 19:45 DC Ondansetron HCl (ZOFRAN INJection) 4 mg Q6HP PRN IV NAUSEA OR VOMITING 05/18/19 20:15 Oxycodone/ Acetaminophen (Percocet 5mg/ 325mg Tablet) 1 tab ASDIRECTED PRN PO PAIN LEVEL 1-4 05/18/19 18:45 05/18/19 19:45 DC Oxycodone/ Acetaminophen (Percocet 5mg/ 325mg Tablet) 1 tab Q4HP PRN PO PAIN 5-10 05/18/19 20:15 Allergies Coded Allergies: simvastatin (Verified Allergy, Unknown, 05/18/19) FROM PRE-OP FORM Objective Physical Examination Examination GENERAL APPEARANCE:Patient seen, laying in bed, awake, alert, and oriented. Comfortable, in no acute distress. BREAST: ELIZABETH wrap was temporarily removed for examination and then replaced. Left breast periareolar and left axillary incision is closed with steri strips. no bruising or swelling present, no erythema. Right breast is soft. no expanding hematoma present in left breast HEENT: mucosa moist NECK: supple LUNGS: breathing comfortably on room air, sats at 97% HEART: RR, no tachycardia ABDOMEN: soft EXTREMITIES: no edema Vital Signs Vital Signs Date Time Temp Pulse Resp B/P (MAP) Pulse Ox O2 Delivery O2 Flow Rate FiO2 05/19/19 06:00 98.0 69 18 101/54 (70) 97 Room Air 05/19/19 00:30 1.0 I&Os I&O- Last 24 Hours up to 6 AM 05/19/19 05:59 Intake Total 2150 ml Output Total 900 ml Balance 1250 ml Impression 8-year-old female with recent diagnosis of left breast cancer , now s/p Left lumpectomy and left sentinel lymph node biopsy POD1 who was admitted for obs postop due to O2 Desaturations W/Cardiac Hx. - ok to d/c home today - ok to resume home meds - postop instructions given - will see pt on followup in the office and discuss pathology then - case discussed with RN Plan / VTE VTE Prophylaxis Ordered?: Yes VTE Exclusion Pharmacological: Bleeding Risk PRICILLA SIDDIQUI DO May 19, 2019 08:04
--- NOTE | 2019-05-19 10:59 | REP ---
Left Breast Lymphoscintigraphy The procedure was performed by PENNY Taveras, under the direct supervision of Dr. Beaulieu. The risks and benefits of the procedure were explained to the patient and informed consent was obtained both verbally and written. Directly prior to the start of the procedure, a formal timeout was completed in the procedure room. Using topical anesthetic and sterile technique .992 mCi of technetium 99m filtered sulfur colloid was injected subdermally in eight fractionated periareolar injections. Images obtained 1 hour after injection shows jannette uptake Impression: 1. There is jannette uptake. Reviewed by PENNY Aguero 05/19/2019 07:38 A Electronically Signed by Jason Beaulieu MD 05/19/2019 10:51 A
--- NOTE | 2019-05-19 12:31 | REP ---
LEFT BREAST ULTRASOUND: HISTORY: Sonographic guidance. FINDINGS: Sonographic guidance is provided to Dr. Newton who performed needle wire localization procedure. Electronically Signed by Jason Beaulieu MD 05/19/2019 12:36 P
--- NOTE | 2019-05-20 18:23 | ROOPDOC ---
[facility] Report Of Operation Report of Operation DATE OF PROCEDURE: 05/18/19 PREPROCEDURE DIAGNOSES: Left breast cancer POSTPROCEDURE DIAGNOSES: Left breast cancer PROCEDURE: Left breast lumpectomy with left sentinel lymph node biopsy and intraop guide wire placement SURGEON: Dr Pricilla Newton FITNESS MANAGEMENT DIRECTOR: Dr Demarco Felipe ANESTHESIA: general ESTIMATED BLOOD LOSS: Approximately 5 mL. COMPLICATIONS: none REMARKS: the wire , the hydromark and the calc which was immediately next to the concerning mass, are present in the specimen DESCRIPTION OF PROCEDURE: INDICATIONS: Ms. Dias is a 68-year-old woman with past medical history of gastric bypass, cardiac surgery and bilateral breast reduction, who was recently diagnosed with left breast cancer found on imaging. On physical exam, patient was also discovered to have left chest muscle laxity causing bulging of the thoracic content in the proximity of the cancer. 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 Preoperatively, it measured 9 mm and was at 10 oclock position in the left breast. Patient did not have palpable lymph nodes on exam. Her genetic was positive for HOXB13 and MUTYH mutations. Patient initially requested left mastectomy with reconstruction and left sentinel lymph node biopsy. Due to laxity of her left chest muscles, reconstruction of her chest wall was planned with the thoracic surgery and plastic surgery. Patient later on changed her mind and wanted to proceed with lumpectomy and sentinel lymph node biopsy. She was medically cleared for surgery by her primary care doctor. Risks and possible complications of surgical procedure including bleeding, infection and injury to surrounding structures were explained to the patient and she wished to proceed. Consent was signed. My initials were placed on the operative site (left). Since patient has an active diagnosis of cancer, subcutaneous injection of 5000 units of heparin was done in Preop. Injection of radionucleotide and the lymphoscintigraphy were done in radiology department preoperatively. Images were reviewed by me preoperatively. DETAILS: Patient was taken to the operating room and placed on the operating room table. A sign in was called stating patients name, date of and the procedure to be done. Preoperative antibiotics were infused. Smooth induction of general anesthesia was done. Patients hands were extended on arm rests. Care was taken not to over extend the arms. Procedure was started with right breast intraop wire localization. Appropriate time out was done and patients name, date of , and the procedure to be done were confirmed. Left breast was cleaned by me. Intraoperative ultrasound was used to confirm location of the Hydromark clip and the lesion. Location of the clip and lesion was marked on the skin as well. 21 G Kopans Breast Lesion Localization Needle was used to place 25 cm wire through the lesion. The end of the wire was passed the lesion and rested at the pectoralis muscle level. The images were captured confirming adequate placement of the localizing wire. So nographer assisted with the wire placement. Next, patients left breast and axilla were prepped and draped in the usual fashion. Care was taken not to displace the wire. Appropriate time out was done again prior second part of the procedure. Patients name, date of , and the procedure to be done were confirmed. Procedure was started with sentinel lymph node biopsy. Neoprobe was used to locate area of maximum intensity of the signal. Local anesthetic using 1% lidocaine and 0.25 % Marcaine 50/50 mix was injected. An incision was made with scalpel number 15 at the inferior aspect of axillary hair line in the left axilla where the maximum signal was identified. The sharp and blunt dissection was continued through the subcutaneous adipose tissue. Clavipectoral fascia was opened. Neoprobe was used to guide the dissection. First sentinel lymph node was identified and excised. The ex-vivo 10 second count was 1161. Second sentinel lymph node was identified and excised as well. The ex-vivo 10 second count was 5849. The specimens were labeled with patients name and left breast sentinel lymph node number 1 and number 2 respectively and sent to pathology. No additional lymph nodes with high radioactive signal were identified. The 10 second count of the background was 36. Adequate hemostasis was assured. Additional local anesthetic was injected into surrounding tissues. Wound was irrigated. Clavipectoral fascia was closed with 3-0 Vicryl interrupted suture. Dermal layer was closed at the end of the case with 3-0 Monocryl and skin was closed with 4-0 Monocryl. Next, our attention was turned toward the left breast. For this part of the pro kim Felipe from thoracic surgery department was immediately available in the operating room to assist in case of lung injury would happen. A superomedial periareolar incision was made with the scalpel after previous injection of the planed incision site with local anesthetic. Subcutaneous skin flaps were raised and the guide wire was ere carefully pulled into the wound. Dissection was carries along the wire until the previously marked on the skin area of cancer location. At this point, wider excision of the tissue surrounding the wire was done. The hypoechoic lesion and the Hydromark clip were identified in the specimen tissue with intraoperative hockey stick ultrasound probe. The end of the wire was identified with palpation at the pectoralis muscle level. The lumpectomy specimen was carefully removed from the breast keeping its proper orientation and log scaler to the back table where margins were marked with the surgical inking kit following the standard colors recommendations. Specimen was placed on the grid and placed in [facility] specimen Imaging. The image revealed a wire, the Hydromark and associate calcification which was seen near the mass on mammogram. At this time radiology department was called to aid with evaluation of excised specimen. Dr Mendoza states that he sees the clip, the wire and the calcifications which was near the mammographically detected mass. The specimen was labeled with patients name and left breast lumpectomy and sent to pathology. After the lumpectomy specimen was removed from the breast, Dr Felipe scrubbed in to assess the lax left chest wall musculature for possible injury which could signify an underlying lung injury. On doctor Rodriguez assessment there was no injury to the musculature and to the lung. At this point five additional specimen margins were taken: inferior, superior, medial, anterior and lateral. Deep/ Posterior margin was not taken as the dissection was carried all the way to the muscle. All new margins, defined as margin farthest away from lumpectomy cavity, were marked with black ink. Each margin was sent as a separate specimen with appropriate labeling. Adequate hemostasis was assured. Additional local anesthetic was injected into surrounding tissues. Clips were placed to fanta the cavity. space was approximated with 3-0 Vicryl. The dermis was closed with 3-0 Monocryl and skin was closed with 4-0 Monocryl. Steri strips were placed over the incision. Sponge and instrument counts were done and were correct. Patient emerged from the anesthesia without any problems. Fluffs were placed over the operative site and patients chest was wrapped snuggly in the ELIZABETH wrap. Patient tolerated procedure well and was taken to recovery unit in stable condition. In recovery unit, patient was very sleepy and her oxygen saturation was dropping. Since patient is a smoker and a cardiac patient, decision was made to admit her for postop observation. PRICILLA NEWTON DO May 20, 2019 18:23
--- NOTE | 2019-05-23 13:47 | REP ---
SPECIMEN RADIOGRAPHY LEFT BREAST: Single view. HISTORY: Needle localization directed excision lumpectomy. [place] node. FINDINGS: Specimen radiography demonstrates a Kopan's needle wire localization device centrally located in the specimen. There is a needle biopsy marker clip adjacent to the localizer wire. There appears to be a calcification adjacent to this. There is some vascular calcification in the specimen as well. Electronically Signed by Jason Beaulieu MD 05/23/2019 05:59 P
== END 2019-05-19 09:02 | disposition home or self-care (01) ==
LOC: M SDC 09:29 → EDSTATUS 12:45 → M MSPAV 19:57
PROVIDERS: ADMIT Surgery; ATTEND Surgery
DX: D05.12 Intraductal carcinoma in situ of left breast (principal); Z17.0 Estrogen receptor positive status [ER+]; Z14.8 Genetic carrier of other disease; M62.89 Other specified disorders of muscle; R09.02 Hypoxemia; I25.10 Atherosclerotic heart disease of native coronary artery without angina pectoris; E78.5 Hyperlipidemia, unspecified; M79.7 Fibromyalgia; J30.9 Allergic rhinitis, unspecified; K21.9 Gastro-esophageal reflux disease without esophagitis; G25.81 Restless legs syndrome; E55.9 Vitamin D deficiency, unspecified; F32.9 Major depressive disorder, single episode, unspecified; F41.9 Anxiety disorder, unspecified; G47.30 Sleep apnea, unspecified; Z98.84 Bariatric surgery status; F17.210 Nicotine dependence, cigarettes, uncomplicated; Z95.1 Presence of aortocoronary bypass graft; Z86.39 Personal history of other endocrine, nutritional and metabolic disease; Z79.899 Other long term (current) drug therapy; Z88.8 Allergy status to other drugs, medicaments and biological substances
CPT/HCPCS: 19301; 38525; 76098; 76942; 78195; 86850; 86900; 86901; 88305; 88307; A9541; G0378; J0131; J0690; J1100; J1170; J1644; J1885; J2250; J2405; J3010

== ENCOUNTER → 2019-06-12 | Outpatient (REF) | payer MEDICARE, OTHER ==
[~2019-06-12] MED LIST changes: +FLON1SPR NARES; -HEPARIN SOD (PORCINE) 5000 UNITS/ML VIAL (J1644 PER 1000UNITS) SQ ONE; +LETR2.5T2 PO; -LIDOCAINE 1% MDV 20ML VIAL SQ PRN; +LORA-674 PO; -LR 1,000 ML IV ONE; +ULTR50TA8 PO; -ceFAZolin SOD 2 GM in IV 1 EA IV ONE
[2019-06-12 13:51] LABS: APPEARANCE, URINE HAZY (CLEAR); BACTERIA, URINE AUTO 3+ (NEGATIVE); BILIRUBIN, URINE AUTO NEGATIVE (NEGATIVE); BLOOD, URINE BLOOD 1+ (NEGATIVE); COLOR, URINE YELLOW (YELLOW); GLUCOSE, URINE (UA) AUTO NEGATIVE (NEGATIVE); KETONE, URINE AUTO NEGATIVE (NEGATIVE); LEUKOCYTE ESTERASE, URINE AUTO 3+ (NEGATIVE); MUCUS, URINE SMALL (NEGATIVE); NITRITE, URINE AUTO POSITIVE (NEGATIVE); PROTEIN, URINE AUTO NEGATIVE (NEGATIVE); RBC, URINE AUTO 7 /HPF (0-3); SPECIFIC GRAVITY URINE AUTO 1.006 (1.002-1.035); SQUAMOUS EPITHELIAL CELL UR AU 1 /HPF (0-6); TRANSITIONAL EPITHELIAL AUTO <1 /HPF; UROBILINOGEN, URINE AUTO 0.2 mg/dL (0.0-2.0); WBC, URINE AUTO 67 /HPF (0-3)
== END ==
LOC: M SFHCPLAZ 13:11
PROVIDERS: ATTEND Internal Medicine
DX: R30.0 Dysuria (principal)

== ENCOUNTER → 2019-06-13 | Outpatient (CLI) | payer MEDICARE, OTHER ==
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
== END ==
LOC: M ONCR 09:45
PROVIDERS: ATTEND Radiology Radiation Oncology
DX: Z08 Encounter for follow-up examination after completed treatment for malignant neoplasm (principal); D05.12 Intraductal carcinoma in situ of left breast; R53.1 Weakness; K21.9 Gastro-esophageal reflux disease without esophagitis; M79.7 Fibromyalgia; F32.9 Major depressive disorder, single episode, unspecified; F41.9 Anxiety disorder, unspecified; F17.210 Nicotine dependence, cigarettes, uncomplicated; F10.10 Alcohol abuse, uncomplicated; Z80.49 Family history of malignant neoplasm of other genital organs; Z90.721 Acquired absence of ovaries, unilateral; Z95.1 Presence of aortocoronary bypass graft; Z95.5 Presence of coronary angioplasty implant and graft; Z98.84 Bariatric surgery status

== ENCOUNTER → 2019-06-20 | Outpatient (RCR) | payer MEDICARE, OTHER ==
--- NOTE | 2019-06-21 08:29 | RADONC ---
RADIATION ONCOLOGY SIMULATION NOTE DATE: 06/20/2019 CHART NUMBER: [id number] SIMULATION NOTE: Ms. Dias was taken to the CT scan for CT simulation of her left breast field. CT was accomplished without difficulty or discomfort. Radiation treatment planning is underway and radiation treatments will begin subsequently. An immobilization device was created and will be used throughout the course of treatment. It was created without difficulty or discomfort. I was physically present throughout the course of CT simulation.
== END ==
LOC: M ONCR 13:48
PROVIDERS: ATTEND Radiology Radiation Oncology
DX: C50.112 Malignant neoplasm of central portion of left female breast (principal)

== ENCOUNTER → 2019-07-20 | Outpatient (RCR) | payer MEDICARE, OTHER ==
--- NOTE | 2019-07-03 10:43 | RADONC ---
RADIATION ONCOLOGY PROGRESS NOTE: DATE: 07/03/2019 CHART NUMBER: [id number] Ms. Dias is presently at a dose of 801 cGy to her left breast and is tolerating treatments quite well at this point with no complaints related to her radiation therapy. She has no breast or bone pain. REVIEW OF SYSTEMS: The patient's review of systems is noncontributory. She denies nausea, vomiting, fevers, chills, night sweats, diplopia, headaches, anxiety or depression, anorexia, weight loss, visual disturbances, chest pain, urinary or bowel difficulties, bone pain, or neurological problems. PHYSICAL EXAMINATION: Physical examination reveals no evidence of radiation change present. There is no moist or dry desquamation. The remainder of her physical exam remains unchanged. Ms. Dias is tolerating treatments quite well and radiation will continue as scheduled.
--- NOTE | 2019-07-10 14:17 | RADONC ---
RADIATION ONCOLOGY PROGRESS NOTE DATE OF SERVICE: 07/10/2019 CHART NUMBER: [id number]. PROGRESS NOTE: Ms. Dias is presently at a dose of 2336 cGy to her left breast and is tolerating treatments quite well at this point with no complaints related to her radiation therapy. She is having no breast or bone pain. REVIEW OF SYSTEMS: The patient's review of systems is noncontributory. She denies nausea, vomiting, fevers, chills, night sweats, diplopia, headaches, anxiety or depression, anorexia, weight loss, visual disturbances, chest pain, urinary or bowel difficulties, bone pain, or neurological problems. PHYSICAL EXAMINATION: The patient's skin is in good condition with no evidence of moist or dry desquamation. The remainder of her physical examination remains unchanged. Ms. Dias is tolerating treatments quite well, and radiation will continue as scheduled.
--- NOTE | 2019-07-11 12:14 | RADONC ---
RADIATION ONCOLOGY SIMULATION NOTE DATE: 07/11/2019 CHART NUMBER: [id number] SIMULATION NOTE: Ms. Dias was taken to the linear accelerator today for clinical setup of her electron beam primary site boost field. Setup was accomplished without difficulty or discomfort. Radiation treatment planning is underway and radiation treatments will begin subsequently. An immobilization device was created and will be used throughout the course of treatment. It was created without difficulty or discomfort. I was physically present throughout the course of clinical setup simulation.
--- NOTE | 2019-07-17 23:59 | RADONC ---
RADIATION ONCOLOGY PROGRESS NOTE DATE: 07/17/2019 CHART NUMBER: [id number] Ms. Dias is presently at a dose of 3471 cGy to her left breast and is tolerating treatments quite well at this point with no complaints related to her radiation therapy. She has no breast or bone pain. REVIEW OF SYSTEMS: The patient's review of systems is noncontributory. She denies nausea, vomiting, fevers, chills, night sweats, diplopia, headaches, anxiety or depression, anorexia, weight loss, visual disturbances, chest pain, urinary or bowel difficulties, bone pain, or neurological problems. PHYSICAL EXAMINATION: The patient's skin is in good condition with no evidence of moist or dry desquamation. The remainder of her physical exam remains unchanged. Ms. Dias is tolerating treatments quite well and radiation will continue as scheduled.
== END ==
LOC: M ONCR 06-26 11:59
PROVIDERS: ATTEND Radiology Radiation Oncology
DX: C50.112 Malignant neoplasm of central portion of left female breast (principal)

== ENCOUNTER 2019-07-26 10:11 | Outpatient (RCR) | payer MEDICARE, OTHER ==
--- NOTE | 2019-07-27 08:32 | RADONC ---
RADIATION ONCOLOGY PROGRESS NOTE: DATE: 07/24/2019 CHART NUMBER: [id number] Ms. Dias is presently at a dose of 4545 cGy to her left breast primary site and is tolerating treatments quite well at this point with no significant difficulties related to her radiation therapy. REVIEW OF SYSTEMS: The patient's review of systems is noncontributory. She denies nausea, vomiting, fevers, chills, night sweats, diplopia, headaches, anxiety or depression, anorexia, weight loss, visual disturbances, chest pain, urinary or bowel difficulties, bone pain, or neurological problems. PHYSICAL EXAMINATION: The patient's skin shows erythema present but overall is in good condition. The remainder of her physical exam remains unchanged. Ms. Dias is tolerating treatments quite well and radiation will continue as scheduled.
--- NOTE | 2019-07-29 15:43 | RADONC ---
RADIATION ONCOLOGY TREATMENT SUMMARY DATE: 07/26/2019 CHART NUMBER: [id number] DIAGNOSIS: Left breast cancer. STAGE: I A, pT1c, N0, M0, grade 2, ER positive, [place] positive, HER2/keely negative, oncotype score 15. ECOG PERFORMANCE STATUS: 0 TREATMENT SUMMARY: Ms. Dias is a very pleasant 69-year-old white female with the diagnosis of what appears to be a stage I A, pT1c, N0, M0 moderately differentiated, grade 2 infiltrating ductal carcinoma of the left breast who presented to me for consideration of postoperative radiation therapy following lumpectomy and sentinel lymph node biopsy for conservative breast management. We treated the patient to her left breast for a total dose 4005 cGy delivered in 15 fractions of 260 cGy each over 20 elapsed days from 06/29/2019 through 07/19/2019. The patient's left breast was treated on the linear accelerator using a 3-D conformal technique with medial and lateral tangential jesus and a 6 MV photon beam. Following completion of 4005 cGy in the entire left breast the primary site was boosted for an additional 900 cGy delivered in 5 fractions of 180 cGy each over six elapsed days from 07/20/2019 through 07/26/2019. The primary site boost was treated on a linear accelerator utilizing a 9 MeV electron beam prescribed to the 90% isodose line via non phos technique. This brought the primary site to a total dose of 4905 centigrade delivered in 20 fractions over 26 elapsed days from 06/29/2019 through 07/26/2019. The patient tolerated her treatments quite well with no difficulties related to her radiation therapy. She was able complete therapy as prescribed without interruption. I have scheduled the patient to see me again in 1 month for further followup. She will also continue to be followed by her other physicians as well. cc: Raeann Newton, MD Corona Fernandes MD
== END 2019-08-20 ==
LOC: M ONCR 10:11
PROVIDERS: ATTEND Radiology Radiation Oncology
DX: C50.112 Malignant neoplasm of central portion of left female breast (principal)

== ENCOUNTER → 2019-09-05 | Outpatient (CLI) | payer MEDICARE, OTHER ==
--- NOTE | 2019-09-07 11:20 | RADONC ---
RADIATION ONCOLOGY FOLLOWUP NOTE: DATE: 09/05/2019 This is a telemedicine visit. The patient was informed of the risks including security breech, technological failure, inability to perform a comprehensive physical exam which could delay or prevent an accurate diagnosis, and potential complications from treatment decisions rendered over a telemedicine platform. The patient understands and consented to the use of telehealth services phone only. CHART NUMBER: [id number] DIAGNOSIS: Left breast cancer. STAGE: I A, pTc, N0, M0, grade 2, ER positive, ME positive, HER2/keely negative, oncotype score 15. Ms. Dias is a very pleasant 69-year-old white female with the diagnosis of a moderately differentiated infiltrating ductal carcinoma of the left breast who is presenting to us today for routine followup visit via telephone consultation 1 month post completion of external beam radiation therapy. The patient presents today reporting that she is doing quite well with no complaints at this time related to her radiation therapy disease. She has no breast or bone pain. REVIEW OF SYSTEMS: The patient's review of systems is noncontributory. She denies nausea, vomiting, fevers, chills, night sweats, diplopia, headaches, anxiety or depression, anorexia, weight loss, visual disturbances, chest pain, urinary or bowel difficulties, bone pain, or neurological problems. PHYSICAL EXAMINATION: Physical examination was deferred as per COVID-19 precautions. This was a telephone interview. ASSESSMENT: The patient is clinically AKLA and is doing well at this point. She is scheduled to see Mike Mujica.Lay in September and is scheduled see her primary care doctor, Dr. Sanchez in 2 weeks. In light of this, I have set up a routine followup in our office in four months' time. cc: DO Sivan Reeves MD Frank Rhode, MD
== END ==
LOC: M ONCR 15:07
PROVIDERS: ATTEND Radiology Radiation Oncology
DX: C50.112 Malignant neoplasm of central portion of left female breast (principal)

== ENCOUNTER → 2019-11-14 | Outpatient (CLI) | payer MEDICARE, OTHER ==
--- NOTE | 2020-01-23 13:35 | REP ---
INDICATION: LUNG SCREENING. History breast carcinoma status post lumpectomy and radiation therapy earlier this year 2019. COMPARISON: Comparison is made with multiple prior chest CT studies dated May 15, 2019, May 22, 2018, March 02, 2018, and March 23, 2017.. TECHNIQUE: 3 mm axial lung only windows provided. FINDINGS: No pulmonary nodule or mass lesion is seen. There is postoperative pleuro-parenchymal fibrosis in the left lung base anteromedially unchanged. there are surgical clips and postoperative density in the left breast soft tissues. Old healed rib fracture noted on the right. There is a small stable right pleural plaque laterally. No significant pulmonary nodule is seen. There is mild linear fibrosis in the left lower lobe. The patient appears to be status post gastric bypass procedure as before. Some vascular calcification. IMPRESSION: Lung RADS category 1 findings. Repeat screening chest CT study suggested in 1 year. <Electronically signed by Devin Beaulieu > 01/23/20 2771
== END ==
LOC: M RAD 10:33
PROVIDERS: ATTEND Internal Medicine
DX: Z12.2 Encounter for screening for malignant neoplasm of respiratory organs (principal)

== ENCOUNTER → 2019-11-17 | Outpatient (CLI) | payer MEDICARE, OTHER ==
[2019-11-17 16:20] LABS: HEMATOCRIT 44.4 % (36.0-47.0); HEMOGLOBIN 14.3 g/dl (12.0-15.5); MEAN CORPUSCULAR HEMOGLOBIN 30.7 pg (27.0-33.0); MEAN CORPUSCULAR HGB CONC 32.2 g/dl (32.0-36.5); MEAN CORPUSCULAR VOLUME 95.3 fl (80.0-96.0); PLATELET COUNT, AUTOMATED 256 10^3/uL (150-450); RED BLOOD COUNT 4.66 10^6/uL (4.00-5.40); WHITE BLOOD COUNT 5.2 10^3/uL (4.0-10.0)
[2019-11-17 16:25] LABS: ALBUMIN 3.9 GM/DL (3.2-5.2); ALT/SGPT 27 U/L (12-78); BILIRUBIN,TOTAL 0.4 MG/DL (0.2-1.0); BLOOD UREA NITROGEN 15 MG/DL (7-18); CALCIUM LEVEL 8.7 MG/DL (8.8-10.2); CARBON DIOXIDE LEVEL 31 MEQ/L (21-32); CHLORIDE LEVEL 104 MEQ/L (98-107); CHOLESTEROL LEVEL 219 MG/DL (<200); CHOLESTEROL RISK RATIO 4.132 (<5); GLOMERULAR FILTRATION RATE > 60.0 (>45); GLUCOSE, FASTING 78 MG/DL (70-100); HDL CHOLESTEROL 53 MG/DL (>40); LDL CHOLESTEROL 149 MG/DL (<100); NON-HDL-C 166 MG/DL; POTASSIUM SERUM 4.3 MEQ/L (3.5-5.1); SODIUM LEVEL 139 MEQ/L (136-145); TOTAL PROTEIN 6.6 GM/DL (6.4-8.2); TRIGLYCERIDES LEVEL 83 MG/DL (<150)
[2019-11-17 16:29] LABS: TOTAL 25(OH) VITAMIN D 26.5 NG/ML (30.0-100.0)
== END ==
LOC: M PLALAB 13:09
PROVIDERS: ATTEND Internal Medicine
DX: E78.5 Hyperlipidemia, unspecified (principal); E55.9 Vitamin D deficiency, unspecified; Z86.39 Personal history of other endocrine, nutritional and metabolic disease

== ENCOUNTER → 2020-02-26 | Outpatient (CLI) | payer MEDICARE, OTHER ==
[~2020-02-26] MED LIST changes: -MONT10TA4 PO; +MONT5TAB2 PO
--- NOTE | 2020-02-26 10:20 | REPMRS ---
Patient History The patient states she had a clinical breast exam in February 2020. Family history of colorectal cancer at age 50 or over in brother, prostate cancer at age 50 or over in brother, ovarian cancer at age 65 in sister. Malignant radio exam breast specimen of the left breast, May 18, 2019. Malignant US guided breast biopsy of the left breast, March 30, 2019. Benign stereotactic core biopsy of the right breast, 2006. Benign stereotactic core biopsy of the right breast, 2004. Reductions of both breasts, 1993. No Hormone Replacement Therapy Diagnostic Bilateral Mammo: February 26, 2020 - Exam #: [id number] Bilateral CC and MLO view(s) were taken. Technologist: Matilde White, Technologist Prior study comparison: March 30, 2019, left breast digital mammo diagnostic unilateral, performed at [facility]. March 24, 2019, right breast digital mammo diagnostic unilateral, performed at [facility]. March 13, 2019, left breast digital mammo diagnostic unilateral, performed at [facility]. February 20, 2019, bilateral digital woman screen mammo performed at [facility]. FINDINGS: The breast tissue is heterogeneously dense. This may lower the sensitivity of mammography. The Volpara volumetric breast density category is: C. Patient is status post excisional biopsy left superomedial breast for malignancy. This is the initial post excisional biopsy left breast mammogram. There are postsurgical changes in the left medial breast including dermal thickening and stromal thickening. There are multiple surgical clips in this portion of the left breast. Expected post biopsy changes. There is a moderate amount of heterogeneously dense fibroglandular tissue which is fairly symmetric. There is no other interval development of dominant mass, architectural distortion, or grouped microcalcification typical of malignancy. There has been no change in the appearance of the mammogram from the prior studies. 3-D tomosynthesis shows no additional findings. Assessment: BI-RADS/ACR category 2 mammogram. Benign Findings. Recommendation Routine screening mammogram of both breasts in 1 year (for women over age 40).. This mammogram was interpreted with the aid of an FDA-approved computer-aided dectection system. Electronically Signed By: Devin Beaulieu MD 02/26/20 [id number]
== END ==
LOC: M WHC 09:40
PROVIDERS: ATTEND Surgery
DX: Z12.31 Encounter for screening mammogram for malignant neoplasm of breast (principal); Z85.3 Personal history of malignant neoplasm of breast
CPT/HCPCS: 77066; G0279

== ENCOUNTER → 2020-09-18 | Outpatient (CLI) | payer OTHER ==
[~2020-09-18] MED LIST changes: +GABA-282 PO; -GABA-843 PO; +MONT10TA10 PO; -MONT5TAB2 PO; +OMEP40CA4 PO; -OMEP40CA97 PO
[2020-09-18 15:56] LABS: ALBUMIN 3.9 GM/DL (3.2-5.2); ALT/SGPT 18 U/L (12-78); BILIRUBIN,TOTAL 0.4 MG/DL (0.2-1.0); BLOOD UREA NITROGEN 12 MG/DL (7-18); CALCIUM LEVEL 8.8 MG/DL (8.8-10.2); CARBON DIOXIDE LEVEL 30 MEQ/L (21-32); CHLORIDE LEVEL 105 MEQ/L (98-107); CHOLESTEROL LEVEL 250 MG/DL (<200); CHOLESTEROL RISK RATIO 4.545 (<5); CREATININE FOR GFR 0.57 MG/DL (0.55-1.30); GLOMERULAR FILTRATION RATE > 60.0 (>45); GLUCOSE, FASTING 88 MG/DL (70-100); HDL CHOLESTEROL 55 MG/DL (>40); LDL CHOLESTEROL 178 MG/DL (<100); NON-HDL-C 195 MG/DL; POTASSIUM SERUM 4.7 MEQ/L (3.5-5.1); SODIUM LEVEL 138 MEQ/L (136-145); TOTAL PROTEIN 6.7 GM/DL (6.4-8.2); TRIGLYCERIDES LEVEL 86 MG/DL (<150)
[2020-09-18 16:00] LABS: TOTAL 25(OH) VITAMIN D 21.9 NG/ML (30.0-100.0)
== END ==
LOC: M PLALAB 13:04
PROVIDERS: ATTEND Internal Medicine
DX: E78.5 Hyperlipidemia, unspecified (principal); E55.9 Vitamin D deficiency, unspecified; Z79.899 Other long term (current) drug therapy

== ENCOUNTER → 2020-11-22 | Outpatient (REF) | payer OTHER ==
[2020-11-22 13:32] LABS: APPEARANCE, URINE TURBID (CLEAR); BACTERIA, URINE AUTO NEGATIVE (NEGATIVE); BILIRUBIN, URINE AUTO NEGATIVE (NEGATIVE); BLOOD, URINE BLOOD 2+ (NEGATIVE); COLOR, URINE YELLOW (YELLOW); GLUCOSE, URINE (UA) AUTO NEGATIVE (NEGATIVE); KETONE, URINE AUTO NEGATIVE (NEGATIVE); LEUKOCYTE ESTERASE, URINE AUTO 3+ (NEGATIVE); MUCUS, URINE SMALL (NEGATIVE); NITRITE, URINE AUTO POSITIVE (NEGATIVE); PROTEIN, URINE AUTO 2+ mg/dL (NEGATIVE); RBC, URINE AUTO 167 /HPF (0-3); SPECIFIC GRAVITY URINE AUTO 1.015 (1.002-1.035); SQUAMOUS EPITHELIAL CELL UR AU 4 /HPF (0-6); WBC, URINE AUTO TNTC /HPF (0-3)
== END ==
LOC: M SFHCPLAZ 13:02
PROVIDERS: ATTEND Physician Assistant
DX: R35.0 Frequency of micturition (principal)
CPT/HCPCS: 81001; 81002; 87088; 87186; G0463

== ENCOUNTER → 2020-12-09 | Outpatient (CLI) | payer OTHER ==
--- NOTE | 2020-12-09 15:51 | DEXAMM ---
INDICATION: OSTEOPENIA OF NECK RIGHT FEMUR. COMPARISON: February 20, 2019 TECHNIQUE: Bone density was measured using dual-energy x-ray absorptionmetry (DEXA). FINDINGS: AP SPINE L1-L4 BMD 0.935 g/cm2 Young Adult T-Score -2.1 Age Matched Z-Score -0.5. LT FEMUR, TOTAL BMD 0.794 g/cm2 Young Adult T-Score -1.7 Age Matched Z-Score -0.3. LT NECK BMD 0.799 g/cm2 Young Adult T-Score -1.7 Age Matched Z-Score -0.1. RT FEMUR, TOTAL BMD 0.733 g/cm2 Young Adult T-Score -2.2 Age Matched Z-Score -0.8. RT NECK BMD 0.763 g/cm2 Young Adult T-Score -2.0 Age Matched Z-Score -0.4. IMPRESSION: There is low bone density of the spine. There is low bone density of the left hip. There is low bone density of the right hip. The density of the spine has decreased 38.6% since the initial exam on November 06, 2002. The density of the spine decreased 8.2% since most recent exam on February 20, 2019. The density of the left hip has decreased 43.6% since initial exam on November 06, 2002. The density of the left hip has increased 0.1% since most recent exam on February 20, 2019. The density of the right hip has decreased 44.9% since the initial exam on November 06, 2002. The density of the right hip has increased 0.3% since the most recent exam on February 20, 2019. FOLLOW-UP: Recommendation for the next bone density exam: 2 years. <Electronically signed by Devin Beaulieu > 12/09/20 [id number]
== END ==
LOC: M WHC 13:02
PROVIDERS: ATTEND Internal Medicine
DX: M85.851 Other specified disorders of bone density and structure, right thigh (principal)

== ENCOUNTER → 2020-12-09 | Outpatient (CLI) | payer OTHER ==
[2020-12-09 16:20] LABS: ALBUMIN 3.8 GM/DL (3.2-5.2); ALT/SGPT 24 U/L (12-78); BILIRUBIN,TOTAL 0.4 MG/DL (0.2-1.0); BLOOD UREA NITROGEN 13 MG/DL (7-18); CALCIUM LEVEL 9.2 MG/DL (8.8-10.2); CARBON DIOXIDE LEVEL 31 MEQ/L (21-32); CHLORIDE LEVEL 106 MEQ/L (98-107); CHOLESTEROL LEVEL 171 MG/DL (<200); CREATININE FOR GFR 0.66 MG/DL (0.55-1.30); GLOMERULAR FILTRATION RATE > 60.0 (>45); GLUCOSE, FASTING 125 MG/DL (70-100); HDL CHOLESTEROL 60 MG/DL (>40); LDL CHOLESTEROL 96 MG/DL (<100); NON-HDL-C 111 MG/DL; POTASSIUM SERUM 4.4 MEQ/L (3.5-5.1); SODIUM LEVEL 141 MEQ/L (136-145); TOTAL PROTEIN 6.5 GM/DL (6.4-8.2); TRIGLYCERIDES LEVEL 73 MG/DL (<150)
== END ==
LOC: M PLALAB 11:43
PROVIDERS: ATTEND Internal Medicine
DX: E78.5 Hyperlipidemia, unspecified (principal); I25.10 Atherosclerotic heart disease of native coronary artery without angina pectoris

== ENCOUNTER → 2020-12-09 | Outpatient (REF) | payer OTHER | LOC: M SFHCPLAZ 16:56 | PROVIDERS: ATTEND Physician Assistant | DX: R30.0 Dysuria (principal) ==

== ENCOUNTER → 2020-12-19 | Outpatient (CLI) | payer OTHER | LOC: M LABSMTC 10:07 | PROVIDERS: ATTEND Pediatrics | DX: Z20.822 Contact with and (suspected) exposure to COVID-19 (principal) | CPT/HCPCS: C9803; U0003 ==

== ENCOUNTER → 2021-02-26 | Outpatient (CLI) | payer OTHER ==
[~2021-02-26] MED LIST changes: +ALEN70TA82; +ATOR1TAB21; +DULO1CAP6; +LATA0.0015; +VITA500030
--- NOTE | 2021-02-26 11:05 | REPMRS ---
Patient History The patient states she had a clinical breast exam in 09/2020. Patient is postmenopausal, has history of cancer in the left breast at age 68, and had previous chest radiation therapy at age 68. Family history of colorectal cancer at age 50 or over in brother, prostate cancer at age 50 or over in brother, ovarian cancer at age 65 in sister. Malignant radio exam breast specimen of the left breast, May 18, 2019. Malignant US guided breast biopsy of the left breast, March 30, 2019. Benign stereotactic core biopsy of the right breast, 2006. Benign stereotactic core biopsy of the right breast, 2003. Reductions of both breasts, 1993. Radiation therapy of the left breast. No Hormone Replacement Therapy Patient states no breast complaints today. Patient has signed MRS History Sheet. Moderna vaccine 05/2020, 06/2020, booster 01/22/21 R arm. Diagnostic Bilateral Mammo: February 26, 2021 - Exam #: [id number] Bilateral CC and MLO view(s) were taken. Technologist: Fiorella Ruff, Technologist Prior study comparison: February 26, 2020, diagnostic bilateral mammo performed at [facility] and [facility] [place]. March 30, 2019, left breast digital mammo diagnostic unilateral, performed at [facility]. FINDINGS: The breast tissue is heterogeneously dense. This may lower the sensitivity of mammography. Screening. This patient?s lifetime risk for the development of invasive breast cancer can?t be calculated due to her age (less than 20 or greater than 85 years) or a prior history of in situ or invasive breast cancer. Digital screening (2D) mammography was performed bilaterally. Additionally, breast tomosynthesis (3D mammography) was performed bilaterally in the CC and MLO projections. Today's exam was compared to the prior exam/exams. By history, the patient has no complaints of a palpable breast abnormality or other significant breast complaints. The Volpara volumetric breast density category is C, the breasts are heterogenously dense which may obscure small masses. The patient is status post left lumpectomy/chemo radiation therapy due to breast carcinoma. There is stable post-procedural internal architectural distortion. The breasts are unchanged in size and shape. There are no timmy-areas of internal architectural distortion. There are no timmy-soft tissue densities or areas of spiculation. There is unchanged post radiation skin thickening. IMPRESSION: BI-RADS Category 2- Benign Findings. There is no evidence of malignant alteration of the breasts. Routine bilateral screening mammogram recommended at its regularly scheduled annual interval. This mammogram was read with the assistance of [employer],an FDA approved computer aided detection system for mammography. Negative x-ray reports should not delay surgical consultation if a dominant or clinically suspicious mass is present. Due to the density of the breasts, MRI/whole breast screening ultrasound is warranted. Not all breast cancers can be identified by mammography. Therefore, we recommend that you continue to perform regular breast self-examination and physical examination and then promptly contact your physician of any concerns or changes. Adenosis and dense breasts may obscure an underlying neoplasm. No significant changes when compared with prior studies. Assessment: BI-RADS/ACR category 2 mammogram. Benign Findings. Recommendation Routine screening mammogram of both breasts in 1 year. Electronically Signed By: Robert Campbell MD 02/26/21 [id number]
== END ==
LOC: M WHC 10:08
PROVIDERS: ATTEND Surgery
DX: Z12.31 Encounter for screening mammogram for malignant neoplasm of breast (principal); Z78.0 Asymptomatic menopausal state; Z85.3 Personal history of malignant neoplasm of breast
CPT/HCPCS: 77066; G0279

== ENCOUNTER → 2021-02-28 | Outpatient (CLI) | payer OTHER ==
[~2021-02-28] MED LIST changes: -MONT10TA10 PO; +MONT10TA97 PO
== END ==
LOC: M RAD 11:05
PROVIDERS: ATTEND Internal Medicine
DX: Z12.2 Encounter for screening for malignant neoplasm of respiratory organs (principal); F17.210 Nicotine dependence, cigarettes, uncomplicated; J84.10 Pulmonary fibrosis, unspecified

== ENCOUNTER → 2021-04-28 | Outpatient (REF) | payer OTHER | LOC: M SFHCPLAZ 13:03 | PROVIDERS: ATTEND Physician Assistant | DX: R35.0 Frequency of micturition (principal) ==

== ENCOUNTER → 2021-07-10 | Outpatient (REF) | payer OTHER ==
[~2021-07-10] MED LIST changes: -ACET1TAB16 PO; +ACET300T48 PO
== END ==
LOC: M SFHCPLAZ 13:09
PROVIDERS: ATTEND Internal Medicine Hematology
DX: N30.00 Acute cystitis without hematuria (principal)

== ENCOUNTER → 2021-09-05 | Outpatient (REF) | payer OTHER | LOC: M SFHCPLAZ 13:02 | PROVIDERS: ATTEND Physician Assistant | DX: R39.15 Urgency of urination (principal) ==

== ENCOUNTER → 2021-09-23 | Outpatient (REF) | payer OTHER ==
[2021-09-23 14:20] LABS: APPEARANCE, URINE CLEAR (CLEAR); BACTERIA, URINE AUTO NEGATIVE (NEGATIVE); BILIRUBIN, URINE AUTO NEGATIVE (NEGATIVE); BLOOD, URINE BLOOD NEGATIVE (NEGATIVE); COLOR, URINE YELLOW (YELLOW); GLUCOSE, URINE (UA) AUTO NEGATIVE (NEGATIVE); KETONE, URINE AUTO NEGATIVE (NEGATIVE); LEUKOCYTE ESTERASE, URINE AUTO NEGATIVE (NEGATIVE); NITRITE, URINE AUTO NEGATIVE (NEGATIVE); PROTEIN, URINE AUTO NEGATIVE (NEGATIVE); RBC, URINE AUTO 0 /HPF (0-3); SPECIFIC GRAVITY URINE AUTO 1.008 (1.002-1.035); SQUAMOUS EPITHELIAL CELL UR AU 1 /HPF (0-6); UROBILINOGEN, URINE AUTO 0.2 mg/dL (0.0-2.0); WBC, URINE AUTO 3 /HPF (0-3)
== END ==
LOC: M SMT 13:36
PROVIDERS: ATTEND Nurse Practitioner Women's Health
DX: N39.0 Urinary tract infection, site not specified (principal)

== ENCOUNTER → 2021-09-25 | Outpatient (CLI) | payer OTHER | LOC: M RAD 14:09 | PROVIDERS: ATTEND Nurse Practitioner Women's Health | DX: N39.0 Urinary tract infection, site not specified (principal) ==

== ENCOUNTER → 2021-10-06 | Outpatient (REF) | payer OTHER ==
[2021-10-06 14:02] LABS: APPEARANCE, URINE HAZY (CLEAR); BACTERIA, URINE AUTO 1+ (NEGATIVE); BILIRUBIN, URINE AUTO NEGATIVE (NEGATIVE); BLOOD, URINE BLOOD NEGATIVE (NEGATIVE); COLOR, URINE YELLOW (YELLOW); GLUCOSE, URINE (UA) AUTO NEGATIVE (NEGATIVE); KETONE, URINE AUTO NEGATIVE (NEGATIVE); LEUKOCYTE ESTERASE, URINE AUTO 2+ (NEGATIVE); NITRITE, URINE AUTO NEGATIVE (NEGATIVE); PROTEIN, URINE AUTO NEGATIVE (NEGATIVE); RBC, URINE AUTO 1 /HPF (0-3); SPECIFIC GRAVITY URINE AUTO 1.008 (1.002-1.035); SQUAMOUS EPITHELIAL CELL UR AU 3 /HPF (0-6); UROBILINOGEN, URINE AUTO 0.2 mg/dL (0.0-2.0); WBC, URINE AUTO 10 /HPF (0-3)
== END ==
LOC: M SMT 12:56
PROVIDERS: ATTEND Urology
DX: N39.0 Urinary tract infection, site not specified (principal)

== ENCOUNTER → 2022-03-18 | Outpatient (CLI) | payer OTHER | LOC: M WHC 14:27 | PROVIDERS: ATTEND Nurse Practitioner Women's Health | DX: C50.912 Malignant neoplasm of unspecified site of left female breast (principal); Z85.3 Personal history of malignant neoplasm of breast | CPT/HCPCS: 77066; G0279 ==

== ENCOUNTER → 2022-04-07 | Outpatient (REF) | payer OTHER ==
[2022-04-07 14:56] LABS: APPEARANCE, URINE MANUAL HAZY (CLEAR); BILIRUBIN, URINE MANUAL NEGATIVE (NEGATIVE); COLOR, URINE MANUAL LT YELLOW (YELLOW); GLUCOSE, URINE (UA) MANUAL NEGATIVE (NEGATIVE); KETONE, URINE MANUAL NEGATIVE (NEGATIVE); LEUKOCYTE ESTERASE, URINE MAN POSITIVE (NEGATIVE); NITRITE, URINE MANUAL POSITIVE (NEGATIVE); PROTEIN, URINE MANUAL NEGATIVE (NEGATIVE); SPECIFIC GRAVITY,URINE MANUAL 1.005 (1.002-1.035); UROBILINOGEN, URINE MANUAL NORMAL (NORMAL)
[2022-04-07 14:57] LABS: BLOOD URINE MANUAL TRACE (NEGATIVE)
[2022-04-07 15:28] LABS: WBC, URINE TNTC /hpf (0-3)
[2022-04-07 15:29] LABS: BACTERIA, URINE LARGE AMOUNT; SQUAMOUS EPITHELIAL CELL URINE NONE SEEN /hpf (SMALL AMT)
== END ==
LOC: M SMT 13:22
PROVIDERS: ATTEND Nurse Practitioner Women's Health
DX: N39.0 Urinary tract infection, site not specified (principal)

== ENCOUNTER → 2022-04-22 | Outpatient (CLI) | payer OTHER | LOC: M PLAIMG 11:35 | PROVIDERS: ATTEND Internal Medicine Hematology | DX: Z85.3 Personal history of malignant neoplasm of breast (principal) ==

== ENCOUNTER → 2022-06-17 | Outpatient (CLI) | payer OTHER ==
[~2022-06-17] MED LIST changes: -ATOR1TAB21; +ATOR1TAB21 PO; -DULO1CAP6; +DULO1CAP6 PO; +OXYB5TAB10 PO; +PRAM0.5T4 PO
== END ==
LOC: M RAD 15:41
PROVIDERS: ATTEND Internal Medicine Hematology
DX: Z12.2 Encounter for screening for malignant neoplasm of respiratory organs (principal); Z87.891 Personal history of nicotine dependence

== ENCOUNTER → 2022-11-11 | Outpatient (REF) | payer OTHER ==
[~2022-11-11] MED LIST changes: +ARTIDRO4 OU; -POLYOPD OU; -ROPI1TAB3 PO; +ROPI1TAB73 PO
[2022-11-11 18:51] LABS: APPEARANCE, URINE CLOUDY (CLEAR); BACTERIA, URINE AUTO 1+ (NEGATIVE); BILIRUBIN, URINE AUTO NEGATIVE (NEGATIVE); BLOOD, URINE BLOOD NEGATIVE (NEGATIVE); COLOR, URINE AMBER (YELLOW); GLUCOSE, URINE (UA) AUTO NEGATIVE (NEGATIVE); KETONE, URINE AUTO TRACE mg/dL (NEGATIVE); LEUKOCYTE ESTERASE, URINE AUTO 3+ (NEGATIVE); NITRITE, URINE AUTO POSITIVE (NEGATIVE); PROTEIN, URINE AUTO NEGATIVE (NEGATIVE); RBC, URINE AUTO 6 /HPF (0-3); SPECIFIC GRAVITY URINE AUTO 1.015 (1.002-1.035); SQUAMOUS EPITHELIAL CELL UR AU 1 /HPF (0-6); WBC, URINE AUTO TNTC /HPF (0-3)
== END ==
LOC: M LABSMT 12:05
PROVIDERS: ATTEND Urology
DX: Z87.440 Personal history of urinary (tract) infections (principal); Z79.899 Other long term (current) drug therapy

== ENCOUNTER → 2022-12-02 | Outpatient (CLI) | payer OTHER ==
[~2022-12-02] MED LIST changes: +LORA-1041 PO; -LORA-674 PO
[2022-12-02 15:53] LABS: FERRITIN 4.5 NG/ML (7.3-270.7)
== END ==
LOC: M PLALAB 09:21
PROVIDERS: ATTEND Internal Medicine Hematology
DX: D50.9 Iron deficiency anemia, unspecified (principal)

== ENCOUNTER → 2023-03-18 | Outpatient (CLI) | payer OTHER ==
[~2023-03-18] MED LIST changes: -OXYB5TAB10 PO; +OXYB5TAB11 PO
== END ==
LOC: M WHC 09:52
PROVIDERS: ATTEND Nurse Practitioner Women's Health
DX: Z85.3 Personal history of malignant neoplasm of breast (principal); Z12.31 Encounter for screening mammogram for malignant neoplasm of breast; Z08 Encounter for follow-up examination after completed treatment for malignant neoplasm
CPT/HCPCS: 77066; G0279

== ENCOUNTER → 2023-05-27 | Outpatient (CLI) | payer OTHER ==
[~2023-05-27] MED LIST changes: -OXYB5TAB11 PO; +OXYB5TAB14 PO
[2023-05-27 13:10] LABS: HEMOGLOBIN 11.1 g/dl (12.0-15.5); MEAN CORPUSCULAR HEMOGLOBIN 25.5 pg (27.0-33.0); MEAN CORPUSCULAR HGB CONC 30.8 g/dl (32.0-36.5); MEAN CORPUSCULAR VOLUME 82.6 fl (80.0-96.0); PLATELET COUNT, AUTOMATED 245 10^3/uL (150-450); RED BLOOD COUNT 4.36 10^6/uL (4.00-5.40); WHITE BLOOD COUNT 5.4 10^3/uL (4.0-10.0)
[2023-05-27 13:35] LABS: CREATININE, URINE 61.4 MG/DL; HEMOGLOBIN A1c 5.5 % (4.0-6.0); MALB URINE SIEMENS < 3.0 MG/L; MAU/CREAT RATIO 4.8 MCG/MG (0.0-30.0)
[2023-05-27 13:36] LABS: C REACTIVE PROTEIN QUANTITATIV < 0.40 MG/DL (<1.0)
[2023-05-27 13:37] LABS: FERRITIN 3.8 NG/ML (7.3-270.7); THYROID STIMULATING HORMONE 1.469 uIU/ML (0.55-4.78); TOTAL 25(OH) VITAMIN D 12.9 NG/ML (20.0-100.0)
[2023-05-27 13:38] LABS: ALBUMIN 3.6 G/DL (3.2-5.2); ALKALINE PHOSPHATASE 107 U/L (46-116); ALT/SGPT 14 U/L (7.0-40); AST/SGOT 19 U/L (<34); BILIRUBIN,TOTAL 0.3 MG/DL (0.3-1.2); BLOOD UREA NITROGEN 10 MG/DL (9-23); CALCIUM LEVEL 7.9 MG/DL (8.3-10.6); CARBON DIOXIDE LEVEL 31 MMOL/L (20-31); CHLORIDE LEVEL 108 MMOL/L (98-107); CHOLESTEROL LEVEL 188 MG/DL (<200); CHOLESTEROL RISK RATIO 4.71 (<5); CREATININE FOR GFR 0.67 MG/DL (0.55-1.30); FREE T4 0.98 NG/DL (0.89-1.76); GLOMERULAR FILTRATION RATE > 60.0 (>39); GLUCOSE, FASTING 85 MG/DL (74-106); HDL CHOLESTEROL 39.9 MG/DL (>40); LDL CHOLESTEROL 129.7 MG/DL (<100); NON-HDL-C 148.1 MG/DL; POTASSIUM SERUM 4.6 MMOL/L (3.5-5.1); SODIUM LEVEL 142 MMOL/L (136-145); TOTAL PROTEIN 6.2 G/DL (5.7-8.2); TRIGLYCERIDES LEVEL 92 MG/DL (<150); VITAMIN B12 LEVEL 302 PG/ML (211-911)
== END ==
LOC: M PLALAB 11:59
PROVIDERS: ATTEND Internal Medicine Hematology
DX: I25.10 Atherosclerotic heart disease of native coronary artery without angina pectoris (principal); G25.81 Restless legs syndrome; Z79.899 Other long term (current) drug therapy; Z86.39 Personal history of other endocrine, nutritional and metabolic disease

== ENCOUNTER → 2023-10-19 | Outpatient (REF) | payer OTHER ==
[2023-10-19 17:56] LABS: APPEARANCE, URINE HAZY (CLEAR); BACTERIA, URINE AUTO NEGATIVE (NEGATIVE); BILIRUBIN, URINE AUTO NEGATIVE (NEGATIVE); BLOOD, URINE BLOOD 1+ (NEGATIVE); COLOR, URINE YELLOW (YELLOW); GLUCOSE, URINE (UA) AUTO NEGATIVE (NEGATIVE); KETONE, URINE AUTO NEGATIVE (NEGATIVE); LEUKOCYTE ESTERASE, URINE AUTO 3+ (NEGATIVE); NITRITE, URINE AUTO NEGATIVE (NEGATIVE); PROTEIN, URINE AUTO NEGATIVE (NEGATIVE); RBC, URINE AUTO 0 /HPF (0-3); SPECIFIC GRAVITY URINE AUTO 1.003 (1.002-1.035); SQUAMOUS EPITHELIAL CELL UR AU 1 /HPF (0-6); UROBILINOGEN, URINE AUTO 0.2 mg/dL (0.0-2.0); WBC, URINE AUTO 79 /HPF (0-3)
== END ==
LOC: M SMT 16:44
PROVIDERS: ATTEND Urology
DX: N39.0 Urinary tract infection, site not specified (principal)

== ENCOUNTER → 2023-12-07 | Outpatient (CLI) | payer OTHER ==
[2023-12-07 14:20] LABS: BASO # 0.1 10^3/uL (0.0-0.2); BASO % 1.2 % (0.0-1.0); EOS # 0.1 10^3/uL (0.0-0.5); EOS % 2.9 % (0.0-3.0); HEMOGLOBIN 10.8 g/dl (12.0-15.5); LYMPH # 1.9 10^3/uL (1.5-5.0); MEAN CORPUSCULAR HEMOGLOBIN 26.4 pg (27.0-33.0); MEAN CORPUSCULAR HGB CONC 30.9 g/dl (32.0-36.5); MEAN CORPUSCULAR VOLUME 85.6 fl (80.0-96.0); MONO # 0.4 10^3/uL (0.0-0.8); MONO % 8.4 % (2.0-8.0); NEUTROPHILS # 2.4 10^3/uL (1.5-8.5); NEUTROPHILS % 48.3 % (36.0-66.0); PLATELET COUNT, AUTOMATED 221 10^3/uL (150-450); RED BLOOD COUNT 4.09 10^6/uL (4.00-5.40); WHITE BLOOD COUNT 4.9 10^3/uL (4.0-10.0)
[2023-12-07 14:45] LABS: FERRITIN 4.3 NG/ML (7.3-270.7)
== END ==
LOC: M PLALAB 11:34
PROVIDERS: ATTEND Internal Medicine Hematology
DX: D50.9 Iron deficiency anemia, unspecified (principal); G25.81 Restless legs syndrome

== ENCOUNTER → 2023-12-10 | Outpatient (CLI) | payer OTHER | LOC: M RAD 07:02 | PROVIDERS: ATTEND Internal Medicine Hematology | DX: Z87.891 Personal history of nicotine dependence (principal) ==

== ENCOUNTER 2023-12-23 12:49 | Outpatient (CLI) | payer OTHER ==
[~2023-12-23] VITALS: Ht 165.1 cm; Wt 70.5 kg
[~2023-12-23 12:49] MED LIST changes: +ALBUTEROL SULFATE 2.5MG/0.5ML INH NEB SOLN INH PRN; +EPINEPHrine INJ 1 MG/ML 1ML AMP IM PRN; +GABA-1172 PO; -GABA-282 PO; +NS 1,000 ML IV SCH; +diphenhydrAMINE 50MG/ML VIAL IV PRN; +methylPREDNISolone 125MG 2ML VIAL IV PRN
[2023-12-23 13:33] VITALS: BP 150/84; O2SAT 94
[2023-12-23] MEDS: IRON SUCROSE 300 MG in NS 250 ML IV ONE (13:54)
[2023-12-23 15:40] VITALS: BP 174/83; O2SAT 97
== END 2023-12-23 15:40 ==
LOC: M INFU 12:49
PROVIDERS: ATTEND Internal Medicine Hematology
DX: D50.9 Iron deficiency anemia, unspecified (principal); Z88.8 Allergy status to other drugs, medicaments and biological substances
CPT/HCPCS: 96365; 96366; J1756

== ENCOUNTER 2023-12-30 13:00 | Outpatient (CLI) | payer OTHER ==
[~2023-12-30] VITALS: Ht 165.1 cm; Wt 155.0 kg
[~2023-12-30 13:00] MED LIST changes: -NS 1,000 ML IV SCH
[2023-12-30] MEDS: IRON SUCROSE 300 MG in NS 250 ML OVER 90 MIN. IV ONE (13:25)
[2023-12-30 15:10] VITALS: BP 168/70; O2SAT 100
== END 2023-12-30 15:20 ==
LOC: M INFU 13:00
PROVIDERS: ATTEND Internal Medicine Hematology
DX: D50.9 Iron deficiency anemia, unspecified (principal); Z88.8 Allergy status to other drugs, medicaments and biological substances
CPT/HCPCS: 96365; 96366; J1756

== ENCOUNTER 2024-01-28 08:25 | Day surgery (SDC) | payer OTHER ==
[~2024-01-28] VITALS: Ht 165.1 cm; Wt 67.1 kg
[~2024-01-28 08:25] MED LIST changes: -ALBUTEROL SULFATE 2.5MG/0.5ML INH NEB SOLN INH PRN; -EPINEPHrine INJ 1 MG/ML 1ML AMP IM PRN; -diphenhydrAMINE 50MG/ML VIAL IV PRN; -methylPREDNISolone 125MG 2ML VIAL IV PRN
[2024-01-28] MEDS ORDERED: propofoL 200 MG/20 ML VIAL As Ordered ONE (09:09)
[2024-01-28] MEDS ORDERED: LIDOCAINE 2% 100MG/5ML SDV (FOR ANES.) As Ordered ONE (09:09)
[2024-01-28 09:36] VITALS: TEMP 98
[2024-01-28 09:58] VITALS: BP 130/67; O2SAT 96
== END 2024-01-28 10:10 | disposition home or self-care (01) ==
LOC: M OPP 08:25
PROVIDERS: ATTEND Surgery
DX: Z12.11 Encounter for screening for malignant neoplasm of colon (principal); Z12.12 Encounter for screening for malignant neoplasm of rectum; K57.30 Diverticulosis of large intestine without perforation or abscess without bleeding; K64.9 Unspecified hemorrhoids; Z98.84 Bariatric surgery status; I10 Essential (primary) hypertension; I25.10 Atherosclerotic heart disease of native coronary artery without angina pectoris; E78.00 Pure hypercholesterolemia, unspecified; R32 Unspecified urinary incontinence; G47.30 Sleep apnea, unspecified; M79.7 Fibromyalgia; Z79.899 Other long term (current) drug therapy; Z85.3 Personal history of malignant neoplasm of breast; Z95.1 Presence of aortocoronary bypass graft; Z92.3 Personal history of irradiation; Z72.0 Tobacco use; Z87.440 Personal history of urinary (tract) infections; Z90.710 Acquired absence of both cervix and uterus

== ENCOUNTER → 2024-03-16 | Outpatient (CLI) | payer OTHER ==
[~2024-03-16] MED LIST changes: +ISOVUE-370 76% 100ML VIAL As Ordered ONE
[2024-03-16 07:31] LABS: BLOOD UREA NITROGEN 8 MG/DL (9-23); CARBON DIOXIDE LEVEL 33 MMOL/L (20-31); CHLORIDE LEVEL 106 MMOL/L (98-107); CREATININE FOR GFR 0.87 MG/DL (0.55-1.30); GLOMERULAR FILTRATION RATE > 60.0 (>39); GLUCOSE, FASTING 89 MG/DL (74-106); POTASSIUM SERUM 4.1 MMOL/L (3.5-5.1); SODIUM LEVEL 143 MMOL/L (136-145)
== END ==
LOC: M RAD 06:29
PROVIDERS: ATTEND Physician Assistant Medical
DX: R07.89 Other chest pain (principal)
CPT/HCPCS: 36415; 71260; 80048; Q9967

== ENCOUNTER → 2024-04-25 | Outpatient (CLI) | payer MEDICARE, OTHER ==
[~2024-04-25] MED LIST changes: -ISOVUE-370 76% 100ML VIAL As Ordered ONE
== END ==
LOC: M RAD 11:39
PROVIDERS: ATTEND Physician Assistant Medical
DX: H57.89 Other specified disorders of eye and adnexa (principal); E04.1 Nontoxic single thyroid nodule

== ENCOUNTER → 2024-05-02 | Outpatient (REF) | payer MEDICARE, OTHER | LOC: M SFHCPLAZ 16:59 | PROVIDERS: ATTEND Student in an Organized Health Care Education/Training Program | DX: N30.90 Cystitis, unspecified without hematuria (principal) ==

== ENCOUNTER → 2024-05-07 | Outpatient (CLI) | payer MEDICARE | LOC: M WHC 20:08 | PROVIDERS: ATTEND Family Medicine | DX: M85.89 Other specified disorders of bone density and structure, multiple sites (principal); Z85.3 Personal history of malignant neoplasm of breast ==

== ENCOUNTER → 2024-05-16 | Outpatient (CLI) | payer MEDICARE, OTHER ==
[2024-05-16 14:49] LABS: BASO # 0.1 10^3/uL (0.0-0.2); EOS # 0.1 10^3/uL (0.0-0.5); EOS % 1.9 % (0.0-3.0); HEMATOCRIT 42.5 % (36.0-47.0); HEMOGLOBIN 13.6 g/dl (12.0-15.5); LYMPH # 1.9 10^3/uL (1.5-5.0); LYMPH % 40.7 % (24.0-44.0); MEAN CORPUSCULAR HEMOGLOBIN 29.8 pg (27.0-33.0); MEAN CORPUSCULAR VOLUME 93.2 fl (80.0-96.0); MONO # 0.4 10^3/uL (0.0-0.8); MONO % 7.8 % (2.0-8.0); NEUTROPHILS # 2.3 10^3/uL (1.5-8.5); NEUTROPHILS % 48.2 % (36.0-66.0); PLATELET COUNT, AUTOMATED 214 10^3/uL (150-450); RED BLOOD COUNT 4.56 10^6/uL (4.00-5.40); WHITE BLOOD COUNT 4.8 10^3/uL (4.0-10.0)
[2024-05-16 15:01] LABS: ALBUMIN 3.6 G/DL (3.2-5.2); ALKALINE PHOSPHATASE 85 U/L (35-104); ALT/SGPT 11 U/L (7.0-40); AST/SGOT 17 U/L (<34); BILIRUBIN,TOTAL 0.5 MG/DL (0.3-1.2); BLOOD UREA NITROGEN 9 MG/DL (9-23); CALCIUM LEVEL 8.7 MG/DL (8.3-10.6); CARBON DIOXIDE LEVEL 33 MMOL/L (20-31); CHLORIDE LEVEL 102 MMOL/L (98-107); CHOLESTEROL LEVEL 212 MG/DL (<200); CHOLESTEROL RISK RATIO 4.23 (<5); CREATININE FOR GFR 0.76 MG/DL (0.55-1.30); GLOMERULAR FILTRATION RATE > 60.0 (>39); GLUCOSE, FASTING 86 MG/DL (74-106); HDL CHOLESTEROL 50.1 MG/DL (>40); LDL CHOLESTEROL 144.5 MG/DL (<100); NON-HDL-C 161.9 MG/DL; SODIUM LEVEL 141 MMOL/L (136-145); TOTAL PROTEIN 6.4 G/DL (5.7-8.2); TRIGLYCERIDES LEVEL 87 MG/DL (<150)
[2024-05-16 15:03] LABS: FERRITIN 32.3 NG/ML (7.3-270.7)
[2024-05-16 15:06] LABS: HEMOGLOBIN A1c 5.1 % (4.0-6.0)
== END ==
LOC: M PLALAB 11:08
PROVIDERS: ATTEND Student in an Organized Health Care Education/Training Program
DX: Z00.00 Encounter for general adult medical examination without abnormal findings (principal); D50.9 Iron deficiency anemia, unspecified; E55.9 Vitamin D deficiency, unspecified; I10 Essential (primary) hypertension; Z79.899 Other long term (current) drug therapy

== ENCOUNTER 2024-06-19 08:49 | Emergency (ER) | payer MEDICARE, OTHER ==
[~2024-06-19] VITALS: Ht 165.1 cm; Wt 65.3 kg
[2024-06-19 08:53] VITALS: TEMP 97.9
[2024-06-19] MEDS ORDERED: LETR2.5T2 (08:58)
[2024-06-19] MEDS ORDERED: ASPI81CH48 (08:58)
[2024-06-19] MEDS ORDERED: OXYB5TAB14 (08:58)
[2024-06-19] MEDS ORDERED: VITA100093 (08:58)
[2024-06-19] MEDS ORDERED: CHLO125TA (08:58)
[2024-06-19] MEDS ORDERED: CHLO15TA (08:58)
[2024-06-19] MEDS ORDERED: CYAN100049 (08:58)
[2024-06-19] MEDS ORDERED: TRAZ-257 (08:58)
[2024-06-19 12:03] VITALS: BP 141/98; O2SAT 99
== END 2024-06-19 12:04 | disposition home or self-care (01) ==
LOC: M ED 08:49
DX: S42.021A Displaced fracture of shaft of right clavicle, initial encounter for closed fracture (principal); Y92.019 Unspecified place in single-family (private) house as the place of occurrence of the external cause; Y93.9 Activity, unspecified; Y99.9 Unspecified external cause status; W19.XXXA Unspecified fall, initial encounter; I25.119 Atherosclerotic heart disease of native coronary artery with unspecified angina pectoris; F41.9 Anxiety disorder, unspecified; F32.A Depression, unspecified; F17.210 Nicotine dependence, cigarettes, uncomplicated; Z85.3 Personal history of malignant neoplasm of breast; Z79.1 Long term (current) use of non-steroidal anti-inflammatories (NSAID); Z79.899 Other long term (current) drug therapy

== ENCOUNTER → 2024-06-23 | Outpatient (CLI) | payer MEDICARE, OTHER ==
[~2024-06-23] MED LIST changes: +ASPI81CH48; +CHLO125TA; +CHLO15TA; +CYAN100049; +LETR2.5T2; +OXYB5TAB14; +TRAZ-257; +VITA100093
== END ==
LOC: M SOG 07:50
PROVIDERS: ATTEND Orthopaedic Surgery
DX: S42.034D Nondisplaced fracture of lateral end of right clavicle, subsequent encounter for fracture with routine healing (principal)

== ENCOUNTER → 2024-06-28 | Outpatient (REF) | payer MEDICARE, OTHER ==
[2024-06-28 13:57] LABS: APPEARANCE, URINE HAZY (CLEAR); BACTERIA, URINE AUTO NEGATIVE (NEGATIVE); BILIRUBIN, URINE AUTO NEGATIVE (NEGATIVE); BLOOD, URINE BLOOD NEGATIVE (NEGATIVE); COLOR, URINE YELLOW (YELLOW); GLUCOSE, URINE (UA) AUTO NEGATIVE (NEGATIVE); KETONE, URINE AUTO NEGATIVE (NEGATIVE); LEUKOCYTE ESTERASE, URINE AUTO TRACE (NEGATIVE); NITRITE, URINE AUTO NEGATIVE (NEGATIVE); PROTEIN, URINE AUTO NEGATIVE (NEGATIVE); RBC, URINE AUTO 3 /HPF (0-3); SPECIFIC GRAVITY URINE AUTO 1.009 (1.002-1.035); SQUAMOUS EPITHELIAL CELL UR AU 4 /HPF (0-6); UROBILINOGEN, URINE AUTO 0.2 mg/dL (0.0-2.0); WBC, URINE AUTO 2 /HPF (0-3)
== END ==
LOC: M SMT 13:04
PROVIDERS: ATTEND Urology
DX: N39.0 Urinary tract infection, site not specified (principal)

== ENCOUNTER → 2024-08-04 | Outpatient (CLI) | payer MEDICARE, OTHER | LOC: M SOG 06:54 | PROVIDERS: ATTEND Orthopaedic Surgery | DX: S42.001D Fracture of unspecified part of right clavicle, subsequent encounter for fracture with routine healing (principal) ==

== ENCOUNTER → 2024-10-02 | Outpatient (CLI) | payer MEDICARE, OTHER ==
[~2024-10-02] MED LIST changes: -PRAV20TA2 PO; +PRAV20TA78 PO
== END ==
LOC: M SOG 07:32
PROVIDERS: ATTEND Orthopaedic Surgery
DX: S42.031D Displaced fracture of lateral end of right clavicle, subsequent encounter for fracture with routine healing (principal)

== ENCOUNTER → 2024-10-31 | Outpatient (CLI) | payer MEDICARE, OTHER | LOC: M WHC 08:50 | PROVIDERS: ATTEND Student in an Organized Health Care Education/Training Program | DX: Z12.31 Encounter for screening mammogram for malignant neoplasm of breast (principal); Z85.3 Personal history of malignant neoplasm of breast; M85.89 Other specified disorders of bone density and structure, multiple sites; M81.0 Age-related osteoporosis without current pathological fracture; R92.323 Mammographic fibroglandular density, bilateral breasts ==